=== PATIENT | female | born 1945 ===

== ENCOUNTER 2024-12-10 23:46 | Inpatient (IN) | payer MEDICARE, SELFPAY ==
--- NOTE | ~2024-12-10 | XR_ITS ---
EXAMINATION: XR CHEST CLINICAL INFORMATION: ?CHF COMPARISON: None available. TECHNIQUE: 2 views of the chest were obtained. FINDINGS: Trace right pleural effusion is evident. The heart size is mildly enlarged. Mild interstitial markings are noted in the middle third right lung zone. Lungs are clear otherwise. XR/XR chest 2V IMPRESSION: Trace right pleural effusion. Cardiomegaly. Increased interstitial markings in the mid third right lung zone could be chronic or related to an atypical or viral infection. Electronically signed by: Paco Randhawa MD 12/25/2024 01:48 PM EDT
[2024-12-11 00:13] VITALS: BMI 25.5
[2024-12-11 00:14] VITALS: BP 155/96; PULSE 71; TEMP 36; O2SAT 97
--- NOTE | 2024-12-11 04:52 | PC.NURSE ---
Admission Note Isaiah Burns , a 79-year-old woman, presented to [facility] ED via ambulance from her apartment for mental health evaluation on PCP recommendation for poor sleep, impulsive thought, and heightened energy due to her recent life stressors related to her financial, family, and housing issues. Her other concerns were irritated? skin issues and left index finger infection. The patient has a medical and psychiatric history of? Osteopenia, polymyalgia, HTN, Afib, heart murmur, TIA, CVA, right sided weakness, gait disturbance, atopic dermatitis, 75% bilateral hearing loses, Dementia, SILVIA, MDD, Brief psychotic disorder, and PTSD. Isaiah arrived in our unit in a stretcher at 0015 on 12/11/24, signed a CV in ED but refused by the ED provider and placed her on Section 12B with an admitting diagnosis of brief psychotic disorder. Isaiah is full-code. She is alert and oriented, times three to four. She is calm and pleasant but with an intermittent episode elated mood. Thought content logical/clear, thought process is tangential. Denied anxiety/depression/ SI/HI/AVH. Med reconciliation was completed/ approved by the provider. Skin assessment completed found pencil eraser size yellowish spot at the left lower back from her past biopsy, quarter size circular lesion near left jaw joint and smaller than dime size circular lesions near right jaw joint from bullous impetigo/Bactroban treatment in placed, light rash on upper abdominal region and left index finger Paronychia.? Walker offered due to history right sided weakness but she refused it by stating she can ambulate independently. Independent with ADL care. Continent with bowel and bladder. Labs unremarkable. Utox negative. UA negative. EKG abnormal shows sinus nehemias.? She signed her treatment plan, safety tool, belonging list, and release paper. Contraband searched and she is on for 5-minutes for a safety check.
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
[2024-12-11 08:22] LABS: Alanine Aminotransferase 19 U/L (0-31); Albumin Level 3.5 g/dL (3.5-5.0); Alkaline Phosphatase 67 U/L (39-117); Anion Gap 9 (12-20); Aspartate Amino Transferase 27 U/L (5-31); Blood Urea Nitrogen 9 mg/dL (9-16); Calcium 9.0 mg/dL (8.4-10.2); Carbon Dioxide 27 mmol/L (22-29); Chloride 109 mmol/L (96-108); Cholesterol 150 mg/dL (<200); Creatinine Clr Calc Pharmacy 84.4; Estimated Glomerular Filt Rate > 60; HDL Cholesterol 59 mg/dL (>40); Potassium 4.0 mmol/L (3.3-5.1); Sodium 141 mmol/L (135-145); Total Protein 6.2 g/dL (6.5-8.0); Triglycerides 48 mg/dL (<150)
[2024-12-11 08:41] LABS: Free T4 (Free Thyroxine) 0.98 ng/dL (0.71-1.85); Thyroid Stimulating Hormone 2.89 uIU/mL (0.32-4.0)
[2024-12-11 09:01] VITALS: BP 148/70; PULSE 69; RESP 18; TEMP 36.3; O2SAT 96
[2024-12-11] MEDS: Calcium + Vitamin D 250 MG TABLET 500 MG PO (09:03)
[2024-12-11] MEDS: Metoprolol Succinate ER 50 MG TAB.ER.24H PO (09:03)
[2024-12-11] MEDS: Clotrimazole 1 % Cream 15 GM TUBE 1 APPL TOPICAL ×2 (09:04→21:14)
[2024-12-11] MEDS: Dry Mouth Spray 60 ML SPRAY 1 SPRAY MUCOUS MEM ×2 (15:05→21:14)
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
[2024-12-11 16:52] VITALS: BMI 25.7
[2024-12-11 20:58] VITALS: BP 140/78; PULSE 72; RESP 16; TEMP 35.9; O2SAT 100
[2024-12-12] MEDS: Dry Mouth Spray 60 ML SPRAY 1 SPRAY MUCOUS MEM (07:07)
[2024-12-12 07:57] VITALS: BP 160/75; PULSE 73; RESP 18; TEMP 36.6; O2SAT 100
[2024-12-12] MEDS: Metoprolol Succinate ER 50 MG TAB.ER.24H PO (09:14)
[2024-12-12] MEDS: Calcium + Vitamin D 250 MG TABLET 500 MG PO (09:14)
[2024-12-12] MEDS: Clotrimazole 1 % Cream 15 GM TUBE 1 APPL TOPICAL ×2 (09:16→20:57)
--- NOTE | 2024-12-12 09:38 | P.PNPSI_ITS ---
Subjective Subjective Date of Service: 12/12/24 Reason For Visit: Brief psychotic d/o. SILVIA, PTSD Subjective Notes: Conditional Voluntary Interim History: Pt slept through the night. She is focused on dry mouth- which is ongoing issue for her, given dry mouth spray. she reports she chews gum to help with this. She presents slightly less labile, and less impulsive. She is taking risperidone. Spoke with daughter Sara to give update. No SI/HI. No psychosis nor overt delusional content. Mental Status Exam Mental Status Exam Narrative: Appearance: wearing hospital gown, somewhat disheveled, fair hygiene, in NAD Behavior: friendly Psychomotor: increased psychomotor activation, not agitated but moving, grabbing things, impulsively. Speech: mumbles at times, hyperverbal, normal-loud tone, spontaneous TP: flight of ideas TC: jummps from topics of her skin condition, to her work, to not knowing if she should be here or not Mood: good Affect: labile Si: denies HI: none VH/AH: none Delusions: no overt delusional content Insight/judgment: impaired x 2. memory/cog: alert, oriented to place, month, year not so much as to situation. Diagnostics Vital Signs (24Hr): Vital Signs - 24 hr 12/11/24 20:58 12/12/24 07:57 Temperature 96.7 F L 97.9 F Pulse Rate 72 73 Respiratory Rate 16 18 Blood Pressure 140/78 H 160/75 H Pulse Oximetry 100 100 Oxygen Delivery Method Room Air Room Air BMI result Body Mass Index 25.7 Labs 12/11/24 07:18 Labs: Laboratory Results - last 48 hr 12/11/24 07:18 Sodium 141 Potassium 4.0 Chloride 109 H Carbon Dioxide 27 Anion Gap 9 L BUN 9 Creatinine 0.53 Estim Creat Clear Calc 84.4 Estimated GFR > 60 Random Glucose 86 Estimat Average Glucose 123 Hemoglobin A1c % 5.9 Calcium 9.0 Total Bilirubin 0.4 AST 27 ALT 19 Alkaline Phosphatase 67 Total Protein 6.2 L Albumin 3.5 Triglycerides 48 Cholesterol 150 LDL Cholesterol, Calc 82 HDL Cholesterol 59 TSH 2.89 Free T4 0.98 Medications Medications Current Medications Acetaminophen (Acetaminophen 325 Mg Tablet) 650 mg PO Q6H PRN PRN Reason: Headache/Pain, Scale 1-10 Al Hydroxide/Mg Hydroxide (Magnesium Hydrox/Alum Hydrox 30 Ml Oral.Susp) 30 ml PO Q6H PRN PRN Reason: Heartburn/Nausea Apixaban (Apixaban 5 Mg Tablet) 5 mg PO BID [facility] Last Admin: 12/12/24 09:14 Dose: 5 mg Ascorbic Acid (Ascorbic Acid 500 Mg Tablet) 500 mg PO DAILY [facility] Last Admin: 12/12/24 09:14 Dose: 500 mg Calcium Carbonate/Cholecalciferol (Calcium + Vitamin D 250 Mg Tablet) 500 mg PO DAILY [facility] Last Admin: 12/12/24 09:14 Dose: 500 mg Cephalexin HCl (Cephalexin 500 Mg Capsule) 500 mg PO QID [facility] Last Admin: 12/12/24 09:15 Dose: 500 mg Clotrimazole (Clotrimazole 1 % Cream 15 Gm Tube) 1 appl TOPICAL BID [facility] Last Admin: 12/12/24 09:16 Dose: 1 appl Hydroxyzine HCl (Hydroxyzine Hcl 25 Mg Tablet) 25 mg PO Q6H PRN PRN Reason: mild anxiety Magnesium Hydroxide (Milk Of Magnesia 30 Ml Oral.Susp) 30 ml PO DAILY PRN PRN Reason: Constipation Metoprolol Succinate (Metoprolol Succinate Er 50 Mg Tab.Er.24h) 50 mg PO DAILY [facility]; Protocol Last Admin: 12/12/24 09:14 Dose: 50 mg Mupirocin (Mupirocin 2 % Oint 22 Gm Tube) 1 appl TOPICAL TID [facility]; Protocol Last Admin: 12/12/24 09:15 Dose: 1 appl Nicotine (Nicotine 21 Mg Patch.Td24) 21 mg TRANSDERMA DAILY PRN PRN Reason: nicotine craving Nicotine Polacrilex (Nicotine Polacrilex 2 Mg Gum) 2 mg BUCCAL Q2H PRN PRN Reason: Nicotine Cravings Olanzapine (Olanzapine 5 Mg Tablet) 5 mg PO BID PRN PRN Reason: agitation Risperidone (Risperidone 0.5 Mg Tablet) 0.5 mg PO BID [facility] Last Admin: 12/12/24 09:18 Dose: 0.5 mg Saliva Substitute (Dry Mouth [place] 60 Ml [place]) 1 spray MUCOUS MEM Q2H PRN PRN Reason: Dry Mouth Last Admin: 12/12/24 07:07 Dose: 1 spray Sertraline HCl (Sertraline Hcl 50 Mg Tablet) 50 mg PO DAILY [facility] Last Admin: 12/12/24 09:15 Dose: 50 mg Trazodone HCl (Trazodone Hcl 50 Mg Tablet) 50 mg PO BEDTIME MRX1 PRN PRN Reason: Insomnia Allergies Allergies Allergy/AdvReac Type Severity Reaction Status Date / Time Penicillins (PCN) Allergy Intermediate unkknown Verified 12/10/24 23:04 Sulfa (Sulfonamide Allergy Intermediate Unknown Verified 12/10/24 23:04 Antibiotics) dust Allergy Intermediate Unknown Uncoded 12/10/24 23:04 indometh Allergy Intermediate muscle Uncoded 12/10/24 23:04 spasm Assessment & Plan Assessment & Plan (1) Bullous impetigo: Status: Acute Code(s): L01.03 - Bullous impetigo Plan Mrs. Burns is an 79 year-old woman who was brought to [facility] on sect 12a after PCP called for wellness check and reporting concern in terms of anxiety. She also had two medical concerns including paronychia of finger in left hand and bullous impetigo.On the unit, Pt presents with labile mood, no SI/HI. No psychosis or delusions. Collateral information from daughter seems that these symptoms are not new, however, she has had limited psychiatric treatment during her life and used to be more functional. We discussed risks, benefits and alternative treatment options. Will start risperidone for mood stabilization. MEDICAL plan: Dementia/psychotic disorder/SILVIA/MDD/PTSD Treatment per psychiatric team AFib/history of CVA with a gait disturbance/history of TIAs Continue on Eliquis, rate controlled with metoprolol Hypertension Controlled on metoprolol Polymyalgia rheumatica Tylenol as needed No acute flare at this time Atopic dermatitis/bullous impetigo/paronychia Continue with Keflex and Bactroban Warm soaks to finger followed by bacitracin TID Continue with Atarax as needed for itching, this seems to be a source of patient's distress Contact precautions until 24 hours on treatment. Wound nurse consult Dry mouth and periodontal disease Artificial saliva q.2 hours p.r.n. History of hypothyroidism Not on medications TSH within normal limits, free T4 within normal limits PSYCHIATRIC: 12/12 continue risperidone 0.5mg po BID. Reason for continued inpatient stay Substantial Risk for: inability to function Time Spent With Patient Time: Total time managing care of this patient today ____ minutes.
--- NOTE | 2024-12-12 10:22 | HO.WOUND ---
Wound Consult: Initial 79 yr old female admitted to [facility] [place] 12[place]10[place]24- See progress notes and H&P for detailed history. Wound consult placed for face. Patient agreeable to assessment and photo documentation. Per notes, patient diagnosed and being treated for bullous impetigo with keflex and bactroban, recommending completing treatment. Left cheek Right cheek Etiology: bullous impetigo Measurements: left 2cm x 2cm x 0.1cm, right 0.8x0.8x0.1 Wound Bed: moist red/pink Drainage / Odor: scant serosanguineous no odor Edges: ? open Sharmaine wound: ? No Induration, Fluctuance or Warmth noted Pain: none Goals of Treatment: ? complete systemic and topical treatment for bullous impetigo back Etiology: dry scab - patient reports biopsy site Measurements: 0.5cm x 0.5cm x 0cm Wound Bed: dry scab Drainage / Odor: none Sharmaine wound: ? No Induration, Fluctuance or Warmth noted, mild localized redness - skin with irregular areas of hypopigmentation noted to back and arms Pain: none Goals of Treatment: ? open to air Groin/inner thighs Etiology: Fungal Wound Bed: intact red with satellite lesions Drainage / Odor: none Edges: ? diffuse Sharmaine wound: ? No Induration, Fluctuance or Warmth noted Pain: none Goals of Treatment: ? antifungal per provider order left second finger Etiology: paronychia Wound Bed: intact, pink mild swelling - patient reports improved Drainage / Odor: none Sharmaine wound: ? No Induration, Fluctuance or Warmth noted Pain: none Goals of Treatment: ? continue current treatment - open to air Recommendations: Bilateral cheeks: cleanse with saline, apply bactroban per MAR, cover with dry dressing/bandaid Back: scab, routine hygiene and moisturizer, leave open to air Groin: routine hygiene, antifungal cream per MAR Re-consult wound care Nurse for wound deterioration or wound changes.
[2024-12-12 20:00] VITALS: BP 147/66; PULSE 67; RESP 16; TEMP 36.7; O2SAT 100
[2024-12-13 08:00] VITALS: BP 135/64; PULSE 67; RESP 16; TEMP 36.2; O2SAT 98
[2024-12-13] MEDS: Dry Mouth Spray 60 ML SPRAY 1 SPRAY MUCOUS MEM (08:39)
[2024-12-13] MEDS: Clotrimazole 1 % Cream 15 GM TUBE 1 APPL TOPICAL ×2 (09:11→21:22)
[2024-12-13] MEDS: Calcium + Vitamin D 250 MG TABLET 500 MG PO (09:11)
[2024-12-13 09:22] VITALS: BP 119/59; PULSE 78
[2024-12-13] MEDS: Metoprolol Succinate ER 50 MG TAB.ER.24H PO (09:24)
--- NOTE | 2024-12-13 10:21 | P.PNPSI_ITS ---
Subjective Subjective Date of Service: 12/13/24 Reason For Visit: Brief psychotic d/o. SILVIA, PTSD Interim History: Met with patient; discussed with team; reviewed note Nurse reports worsening bulbous impetigo which is spreading from groin up to pelvis/abdomen. Patient was started on Keflex and Bactroban however since nursing reports that is worsening, placed hospitalist consult Diagnostics Vital Signs (24Hr): Vital Signs - 24 hr 12/12/24 20:00 12/13/24 08:00 12/13/24 09:22 Temperature 98.1 F 97.2 F Pulse Rate 67 67 78 Respiratory Rate 16 16 Blood Pressure 147/66 H 135/64 119/59 L Pulse Oximetry 100 98 Oxygen Delivery Method Room Air Room Air BMI result Body Mass Index 25.7 Labs 12/11/24 07:18 Medications Medications Current Medications Acetaminophen (Acetaminophen 325 Mg Tablet) 650 mg PO Q6H PRN PRN Reason: Headache/Pain, Scale 1-10 Al Hydroxide/Mg Hydroxide (Magnesium Hydrox/Alum Hydrox 30 Ml Oral.Susp) 30 ml PO Q6H PRN PRN Reason: Heartburn/Nausea Apixaban (Apixaban 5 Mg Tablet) 5 mg PO BID [facility] Last Admin: 12/13/24 09:12 Dose: 5 mg Ascorbic Acid (Ascorbic Acid 500 Mg Tablet) 500 mg PO DAILY [facility] Last Admin: 12/13/24 09:13 Dose: 500 mg Calcium Carbonate/Cholecalciferol (Calcium + Vitamin D 250 Mg Tablet) 500 mg PO DAILY [facility] Last Admin: 12/13/24 09:11 Dose: 500 mg Cephalexin HCl (Cephalexin 500 Mg Capsule) 500 mg PO QID [facility] Last Admin: 12/13/24 09:12 Dose: 500 mg Clotrimazole (Clotrimazole 1 % Cream 15 Gm Tube) 1 appl TOPICAL BID [facility] Last Admin: 12/13/24 09:11 Dose: 1 appl Hydroxyzine HCl (Hydroxyzine Hcl 25 Mg Tablet) 25 mg PO Q6H PRN PRN Reason: mild anxiety Magnesium Hydroxide (Milk Of Magnesia 30 Ml Oral.Susp) 30 ml PO DAILY PRN PRN Reason: Constipation Metoprolol Succinate (Metoprolol Succinate Er 50 Mg Tab.Er.24h) 50 mg PO DAILY [facility]; Protocol Last Admin: 12/13/24 09:24 Dose: 50 mg Mupirocin (Mupirocin 2 % Oint 22 Gm Tube) 1 appl TOPICAL TID [facility]; Protocol Last Admin: 12/13/24 09:10 Dose: 1 appl Nicotine (Nicotine 21 Mg Patch.Td24) 21 mg TRANSDERMA DAILY PRN PRN Reason: nicotine craving Nicotine Polacrilex (Nicotine Polacrilex 2 Mg Gum) 2 mg BUCCAL Q2H PRN PRN Reason: Nicotine Cravings Olanzapine (Olanzapine 5 Mg Tablet) 5 mg PO BID PRN PRN Reason: agitation Risperidone (Risperidone 0.5 Mg Tablet) 0.5 mg PO BID [facility] Last Admin: 12/13/24 09:12 Dose: 0.5 mg Saliva Substitute (Dry Mouth [place] 60 Ml [place]) 1 spray MUCOUS MEM Q2H PRN PRN Reason: Dry Mouth Last Admin: 12/13/24 08:39 Dose: 1 spray Sertraline HCl (Sertraline Hcl 50 Mg Tablet) 50 mg PO DAILY [facility] Last Admin: 12/13/24 09:12 Dose: 50 mg Trazodone HCl (Trazodone Hcl 50 Mg Tablet) 50 mg PO BEDTIME MRX1 PRN PRN Reason: Insomnia Allergies Allergies Allergy/AdvReac Type Severity Reaction Status Date / Time Penicillins (PCN) Allergy Intermediate unkknown Verified 12/10/24 23:04 Sulfa (Sulfonamide Allergy Intermediate Unknown Verified 12/10/24 23:04 Antibiotics) dust Allergy Intermediate Unknown Uncoded 12/10/24 23:04 indometh Allergy Intermediate muscle Uncoded 12/10/24 23:04 spasm Assessment & Plan Assessment & Plan (1) Bullous impetigo: Status: Acute Code(s): L01.03 - Bullous impetigo Plan 79-year-old female admitted to [facility] after presenting to [facility] for increased impulsive thoughts and shon. Dementia/psychotic disorder/SILVIA/MDD/PTSD Treatment per psychiatric team AFib/history of CVA with a gait disturbance/history of TIAs Continue on Eliquis, rate controlled with metoprolol Hypertension Controlled on metoprolol Polymyalgia rheumatica Tylenol as needed No acute flare at this time Atopic dermatitis/bullous impetigo/paronychia Continue with Keflex and Bactroban Warm soaks to finger followed by bacitracin TID Continue with Atarax as needed for itching, this seems to be a source of patient's distress Contact precautions until 24 hours on treatment. Wound nurse consult Dry mouth and periodontal disease Artificial saliva q.2 hours p.r.n. History of hypothyroidism Not on medications TSH within normal limits, free T4 within normal limits Thank you for allowing me to participate in the care of this patient. Will follow as needed, please notify medical provider with any changes in condition or concerns. Time Spent With Patient Time: Total time managing care of this patient today ____ minutes.
--- NOTE | 2024-12-13 10:30 | PC.NURSE ---
Pt has worsening rash to bilateral groin. site cleansed with soap and water and scheduled Triamcinolone cream applied to bilat groin. Pt has a slightly raised, red clustered rash that is on her bilat thigh and bilat hips and slightly spreading up her abdomen. Provider Sanjeev Caldwell notified of the spreading rash, hospitalist consult placed. Pt bilat cheeks cleansed with NS, scheduled bactroban and bandaids applied. Pt scab on back was cleansed with soap and water and lotion applied.
--- NOTE | 2024-12-13 12:44 | P.PNPSI_ITS ---
Subjective Subjective Date of Service: 12/13/24 Reason For Visit: Brief psychotic d/o. SILVIA, PTSD Interim History: Patient was seen and discussed in rounds today. Records and plans were reviewed. She continues to be anxious and concerned about possible eviction. Skin lesions are being cleaned and she is on antibiotics. No other complaints or changes today. Eating and sleeping adequately Review of Systems Review of Systems Yes all other systems are reviewed and are negative Mental Status Exam Mental Status Exam Narrative: Appearance: wearing hospital gown, somewhat disheveled, fair hygiene, in NAD Behavior: friendly Psychomotor: increased psychomotor activation, not agitated but moving, grabbing things, impulsively. Speech: mumbles at times, hyperverbal, normal-loud tone, spontaneous TP: flight of ideas TC: jummps from topics of her skin condition, to her work, to not knowing if she should be here or not Mood: good Affect: labile Si: denies HI: none VH/AH: none Delusions: no overt delusional content Insight/judgment: impaired x 2. memory/cog: alert, oriented to place, month, year not so much as to situation. Diagnostics Vital Signs (24Hr): Vital Signs - 24 hr 12/12/24 20:00 12/13/24 08:00 12/13/24 09:22 Temperature 98.1 F 97.2 F Pulse Rate 67 67 78 Respiratory Rate 16 16 Blood Pressure 147/66 H 135/64 119/59 L Pulse Oximetry 100 98 Oxygen Delivery Method Room Air Room Air BMI result Body Mass Index 25.7 Labs 12/11/24 07:18 Medications Medications Current Medications Acetaminophen (Acetaminophen 325 Mg Tablet) 650 mg PO Q6H PRN PRN Reason: Headache/Pain, Scale 1-10 Al Hydroxide/Mg Hydroxide (Magnesium Hydrox/Alum Hydrox 30 Ml Oral.Susp) 30 ml PO Q6H PRN PRN Reason: Heartburn/Nausea Apixaban (Apixaban 5 Mg Tablet) 5 mg PO BID [facility] Last Admin: 12/13/24 09:12 Dose: 5 mg Ascorbic Acid (Ascorbic Acid 500 Mg Tablet) 500 mg PO DAILY [facility] Last Admin: 12/13/24 09:13 Dose: 500 mg Calcium Carbonate/Cholecalciferol (Calcium + Vitamin D 250 Mg Tablet) 500 mg PO DAILY [facility] Last Admin: 12/13/24 09:11 Dose: 500 mg Cephalexin HCl (Cephalexin 500 Mg Capsule) 500 mg PO QID [facility] Last Admin: 12/13/24 12:29 Dose: 500 mg Clotrimazole (Clotrimazole 1 % Cream 15 Gm Tube) 1 appl TOPICAL BID [facility] Last Admin: 12/13/24 09:11 Dose: 1 appl Hydroxyzine HCl (Hydroxyzine Hcl 25 Mg Tablet) 25 mg PO Q6H PRN PRN Reason: mild anxiety Magnesium Hydroxide (Milk Of Magnesia 30 Ml Oral.Susp) 30 ml PO DAILY PRN PRN Reason: Constipation Metoprolol Succinate (Metoprolol Succinate Er 50 Mg Tab.Er.24h) 50 mg PO DAILY [facility]; Protocol Last Admin: 12/13/24 09:24 Dose: 50 mg Mupirocin (Mupirocin 2 % Oint 22 Gm Tube) 1 appl TOPICAL TID [facility]; Protocol Last Admin: 12/13/24 09:10 Dose: 1 appl Nicotine (Nicotine 21 Mg Patch.Td24) 21 mg TRANSDERMA DAILY PRN PRN Reason: nicotine craving Nicotine Polacrilex (Nicotine Polacrilex 2 Mg Gum) 2 mg BUCCAL Q2H PRN PRN Reason: Nicotine Cravings Olanzapine (Olanzapine 5 Mg Tablet) 5 mg PO BID PRN PRN Reason: agitation Risperidone (Risperidone 0.5 Mg Tablet) 0.5 mg PO BID [facility] Last Admin: 12/13/24 09:12 Dose: 0.5 mg Saliva Substitute (Dry Mouth [place] 60 Ml [place]) 1 spray MUCOUS MEM Q2H PRN PRN Reason: Dry Mouth Last Admin: 12/13/24 08:39 Dose: 1 spray Sertraline HCl (Sertraline Hcl 50 Mg Tablet) 50 mg PO DAILY [facility] Last Admin: 12/13/24 09:12 Dose: 50 mg Trazodone HCl (Trazodone Hcl 50 Mg Tablet) 50 mg PO BEDTIME MRX1 PRN PRN Reason: Insomnia Allergies Allergies Allergy/AdvReac Type Severity Reaction Status Date / Time Penicillins (PCN) Allergy Intermediate unkknown Verified 12/10/24 23:04 Sulfa (Sulfonamide Allergy Intermediate Unknown Verified 12/10/24 23:04 Antibiotics) dust Allergy Intermediate Unknown Uncoded 12/10/24 23:04 indometh Allergy Intermediate muscle Uncoded 12/10/24 23:04 spasm Assessment & Plan Assessment & Plan (1) Bullous impetigo: Status: Acute Code(s): L01.03 - Bullous impetigo Plan Mrs. Burns is an 79 year-old woman who was brought to [facility] on sect 12a after PCP called for wellness check and reporting concern in terms of anxiety. She also had two medical concerns including paronychia of finger in left hand and bullous impetigo.On the unit, Pt presents with labile mood, no SI/HI. No psychosis or delusions. Collateral information from daughter seems that these symptoms are not new, however, she has had limited psychiatric treatment during her life and used to be more functional. We discussed risks, benefits and alternative treatment options. Will start risperidone for mood stabilization. MEDICAL plan: Dementia/psychotic disorder/SILVIA/MDD/PTSD Treatment per psychiatric team AFib/history of CVA with a gait disturbance/history of TIAs Continue on Eliquis, rate controlled with metoprolol Hypertension Controlled on metoprolol Polymyalgia rheumatica Tylenol as needed No acute flare at this time Atopic dermatitis/bullous impetigo/paronychia Continue with Keflex and Bactroban Warm soaks to finger followed by bacitracin TID Continue with Atarax as needed for itching, this seems to be a source of patient's distress Contact precautions until 24 hours on treatment. Wound nurse consult Dry mouth and periodontal disease Artificial saliva q.2 hours p.r.n. History of hypothyroidism Not on medications TSH within normal limits, free T4 within normal limits PSYCHIATRIC: 12/12 continue risperidone 0.5mg po BID. 12/13: Continue current regimen and plans Reason for continued inpatient stay Substantial Risk for: inability to function Time Spent With Patient Time: Total time managing care of this patient today ____ minutes.
--- NOTE | 2024-12-13 16:11 | PC.NURSE ---
Pt informed RN that she lost her wedding rings on the unit. RN looked with pt in her room and could not find her rings. RN called security who checked the safe and reported the rings were not in the safe. RN opened the sealed pt belongings behind the nurses station and did not find the rings. RN informed pt that the unit would continue searching for her wedding rings.
[2024-12-13 20:00] VITALS: BP 122/63; PULSE 66; RESP 16; TEMP 36.4; O2SAT 99
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
[2024-12-14 08:00] VITALS: BP 144/65; PULSE 70; RESP 16; TEMP 36.2; O2SAT 96
[2024-12-14 08:11] VITALS: BP 144/65; PULSE 70
[2024-12-14] MEDS: Calcium + Vitamin D 250 MG TABLET 500 MG PO (08:11)
[2024-12-14] MEDS: Metoprolol Succinate ER 50 MG TAB.ER.24H PO (08:11)
[2024-12-14 09:25] LABS: MRSA Nasal PCR NEGATIVE (Negative); SA Nasal PCR POSITIVE (Negative)
[2024-12-14] MEDS: Clotrimazole 1 % Cream 15 GM TUBE 1 APPL TOPICAL ×2 (09:52→19:50)
--- NOTE | 2024-12-14 10:08 | PC.NURSE ---
Affected areas cleansed and antifungal applied. Patient continues to c/o itching. Atarax administered. Will continue to monitor.
--- NOTE | 2024-12-14 12:14 | HO.PSYCHPN ---
Subjective Subjective Date of Service: 12/14/24 Reason For Visit: Brief psychotic d/o. SILVIA, PTSD Interim History: Patient was seen and discussed in rounds today. Records and plans were reviewed. She has been stable with no changes. No behavioral issues. Finger wound is being cleaned. She is on antibiotics. No dangerous behaviors. No behavioral issues. No changes were made Review of Systems Review of Systems Yes all other systems are reviewed and are negative Mental Status Exam Mental Status Exam Narrative: Appearance: wearing hospital gown, somewhat disheveled, fair hygiene, in NAD Behavior: friendly Psychomotor: increased psychomotor activation, not agitated but moving, grabbing things, impulsively. Speech: mumbles at times, hyperverbal, normal-loud tone, spontaneous TP: flight of ideas TC: jummps from topics of her skin condition, to her work, to not knowing if she should be here or not Mood: good Affect: labile Si: denies HI: none VH/AH: none Delusions: no overt delusional content Insight/judgment: impaired x 2. memory/cog: alert, oriented to place, month, year not so much as to situation. Diagnostics Vital Signs (24Hr): Vital Signs - 24 hr 12/13/24 20:00 12/14/24 08:00 12/14/24 08:11 Temperature 97.5 F 97.2 F Pulse Rate 66 70 70 Respiratory Rate 16 16 Blood Pressure 122/63 144/65 H 144/65 H Pulse Oximetry 99 96 Oxygen Delivery Method Room Air Room Air BMI result Body Mass Index 25.7 Labs 12/11/24 07:18 Labs: Laboratory Results - last 48 hr 12/13/24 22:35 Nasal Screen MRSA (PCR) NEGATIVE Nasal S. aureus Screen POSITIVE A Nasal MRSA/S.aureus Interp SEE NOTE Medications Medications Current Medications Acetaminophen (Acetaminophen 325 Mg Tablet) 650 mg PO Q6H PRN PRN Reason: Headache/Pain, Scale 1-10 Al Hydroxide/Mg Hydroxide (Magnesium Hydrox/Alum Hydrox 30 Ml Oral.Susp) 30 ml PO Q6H PRN PRN Reason: Heartburn/Nausea Apixaban (Apixaban 5 Mg Tablet) 5 mg PO BID [facility] Last Admin: 12/14/24 08:11 Dose: 5 mg Ascorbic Acid (Ascorbic Acid 500 Mg Tablet) 500 mg PO DAILY [facility] Last Admin: 12/14/24 08:11 Dose: 500 mg Calcium Carbonate/Cholecalciferol (Calcium + Vitamin D 250 Mg Tablet) 500 mg PO DAILY [facility] Last Admin: 12/14/24 08:11 Dose: 500 mg Cephalexin HCl (Cephalexin 500 Mg Capsule) 500 mg PO QID [facility] Last Admin: 12/14/24 08:12 Dose: 500 mg Clotrimazole (Clotrimazole 1 % Cream 15 Gm Tube) 1 appl TOPICAL BID [facility] Last Admin: 12/14/24 09:52 Dose: 1 appl Hydroxyzine HCl (Hydroxyzine Hcl 25 Mg Tablet) 25 mg PO Q6H PRN PRN Reason: mild anxiety Last Admin: 12/14/24 10:24 Dose: 25 mg Magnesium Hydroxide (Milk Of Magnesia 30 Ml Oral.Susp) 30 ml PO DAILY PRN PRN Reason: Constipation Metoprolol Succinate (Metoprolol Succinate Er 50 Mg Tab.Er.24h) 50 mg PO DAILY [facility]; Protocol Last Admin: 12/14/24 08:11 Dose: 50 mg Mupirocin (Mupirocin 2 % Oint 22 Gm Tube) 1 appl TOPICAL TID [facility]; Protocol Last Admin: 12/14/24 09:52 Dose: 1 appl Nicotine (Nicotine 21 Mg Patch.Td24) 21 mg TRANSDERMA DAILY PRN PRN Reason: nicotine craving Nicotine Polacrilex (Nicotine Polacrilex 2 Mg Gum) 2 mg BUCCAL Q2H PRN PRN Reason: Nicotine Cravings Olanzapine (Olanzapine 5 Mg Tablet) 5 mg PO BID PRN PRN Reason: agitation Last Admin: 12/14/24 08:11 Dose: 5 mg Risperidone (Risperidone 0.5 Mg Tablet) 0.5 mg PO BID [facility] Last Admin: 12/14/24 08:12 Dose: 0.5 mg Saliva Substitute (Dry Mouth [place] 60 Ml [place]) 1 spray MUCOUS MEM Q2H PRN PRN Reason: Dry Mouth Last Admin: 12/13/24 08:39 Dose: 1 spray Sertraline HCl (Sertraline Hcl 50 Mg Tablet) 50 mg PO DAILY [facility] Last Admin: 12/14/24 08:11 Dose: 50 mg Trazodone HCl (Trazodone Hcl 50 Mg Tablet) 50 mg PO BEDTIME MRX1 PRN PRN Reason: Insomnia Allergies Allergies Allergy/AdvReac Type Severity Reaction Status Date / Time Penicillins (PCN) Allergy Intermediate unkknown Verified 12/10/24 23:04 Sulfa (Sulfonamide Allergy Intermediate Unknown Verified 12/10/24 23:04 Antibiotics) dust Allergy Intermediate Unknown Uncoded 12/10/24 23:04 indometh Allergy Intermediate muscle Uncoded 12/10/24 23:04 spasm Assessment & Plan Assessment & Plan (1) Bullous impetigo: Status: Acute Code(s): L01.03 - Bullous impetigo (2) Davida: Status: Acute Code(s): F30.9 - Manic episode, unspecified Plan Pt on S1 itz psych re-consulted for worsening rash bullous impetigo - appears to be improving however pt disagrees, continue with keflex and bactroban - MRSA nasal swab, if + switch to doxycycline 100mg BID x7 days - atarax PRN for itching - follow wound care recs paronychia, improving - warm soaks and bacitracin TID tinea cruris - continue clotrimazole cream BID - keep skin clean and dry Thank you for allowing me to participate in the pt's care. Signing off. Please contact the medical team if any questions or concerns. 12/14: Continue current regimen and plans Reason for continued inpatient stay Substantial Risk for: med/psych decompensation Time Spent With Patient Time: Total time managing care of this patient today ____ minutes.
--- NOTE | 2024-12-14 17:02 | PC.NURSE ---
Warm compress applied to L second finger as ordered. Bacitracin applied. Patient educated r/t putting finger in her mouth.
[2024-12-14 19:47] VITALS: BP 119/57; PULSE 75; RESP 16; TEMP 36.3; O2SAT 98
--- NOTE | 2024-12-15 06:18 | PC.NURSE ---
Patient slept through the night, meds and meals compliant, no distress observed/reported, no behavior and safety concerns, will continue to monitor
[2024-12-15 08:00] VITALS: BP 120/60; PULSE 78; TEMP 36.3
[2024-12-15] MEDS: Calcium + Vitamin D 250 MG TABLET 500 MG PO (09:49)
[2024-12-15] MEDS: Metoprolol Succinate ER 50 MG TAB.ER.24H PO (09:51)
--- NOTE | 2024-12-15 10:05 | P.PNPSI_ITS ---
Subjective Subjective Date of Service: 12/15/24 Reason For Visit: Brief psychotic d/o. SILVIA, PTSD Interim History: Patient was seen and discussed in rounds today. Records and plans were reviewed. She has been stable with no changes. No behavioral issues. She had a panic attack this morning, waking up history did not have her dentures and felt like she could not breathe. She is doing better now and eating her breakfast. No complaints. No side effects. No changes were made today Review of Systems Review of Systems Yes all other systems are reviewed and are negative Mental Status Exam Mental Status Exam Narrative: In today's visit she is alert, pleasant and interactive within her means. Soft- spoken speech. Little eye contact. No acute signs of psychosis. Cognitively impaired. No SI. Judgment impaired Diagnostics Vital Signs (24Hr): Vital Signs - 24 hr 12/14/24 19:47 Temperature 97.3 F Pulse Rate 75 Respiratory Rate 16 Blood Pressure 119/57 L Pulse Oximetry 98 Oxygen Delivery Method Room Air BMI result Body Mass Index 25.7 Labs 12/11/24 07:18 Labs: Laboratory Results - last 48 hr 12/13/24 22:35 Nasal Screen MRSA (PCR) NEGATIVE Nasal S. aureus Screen POSITIVE A Nasal MRSA/S.aureus Interp SEE NOTE Medications Medications Current Medications Acetaminophen (Acetaminophen 325 Mg Tablet) 650 mg PO Q6H PRN PRN Reason: Headache/Pain, Scale 1-10 Al Hydroxide/Mg Hydroxide (Magnesium Hydrox/Alum Hydrox 30 Ml Oral.Susp) 30 ml PO Q6H PRN PRN Reason: Heartburn/Nausea Apixaban (Apixaban 5 Mg Tablet) 5 mg PO BID [facility] Last Admin: 12/15/24 09:52 Dose: 5 mg Ascorbic Acid (Ascorbic Acid 500 Mg Tablet) 500 mg PO DAILY [facility] Last Admin: 12/15/24 09:50 Dose: 500 mg Calcium Carbonate/Cholecalciferol (Calcium + Vitamin D 250 Mg Tablet) 500 mg PO DAILY [facility] Last Admin: 12/15/24 09:49 Dose: 500 mg Cephalexin HCl (Cephalexin 500 Mg Capsule) 500 mg PO QID [facility] Last Admin: 12/15/24 09:51 Dose: 500 mg Clotrimazole (Clotrimazole 1 % Cream 15 Gm Tube) 1 appl TOPICAL BID [facility] Last Admin: 12/14/24 19:50 Dose: 1 appl Hydroxyzine HCl (Hydroxyzine Hcl 25 Mg Tablet) 25 mg PO Q6H PRN PRN Reason: mild anxiety Last Admin: 12/14/24 10:24 Dose: 25 mg Magnesium Hydroxide (Milk Of Magnesia 30 Ml Oral.Susp) 30 ml PO DAILY PRN PRN Reason: Constipation Metoprolol Succinate (Metoprolol Succinate Er 50 Mg Tab.Er.24h) 50 mg PO DAILY [facility]; Protocol Last Admin: 12/15/24 09:51 Dose: 50 mg Mupirocin (Mupirocin 2 % Oint 22 Gm Tube) 1 appl TOPICAL TID [facility]; Protocol Last Admin: 12/14/24 19:50 Dose: 1 appl Nicotine (Nicotine 21 Mg Patch.Td24) 21 mg TRANSDERMA DAILY PRN PRN Reason: nicotine craving Nicotine Polacrilex (Nicotine Polacrilex 2 Mg Gum) 2 mg BUCCAL Q2H PRN PRN Reason: Nicotine Cravings Olanzapine (Olanzapine 5 Mg Tablet) 5 mg PO BID PRN PRN Reason: agitation Last Admin: 12/14/24 08:11 Dose: 5 mg Risperidone (Risperidone 0.5 Mg Tablet) 0.5 mg PO BID [facility] Last Admin: 12/15/24 09:49 Dose: 0.5 mg Saliva Substitute (Dry Mouth [place] 60 Ml [place]) 1 spray MUCOUS MEM Q2H PRN PRN Reason: Dry Mouth Last Admin: 12/13/24 08:39 Dose: 1 spray Sertraline HCl (Sertraline Hcl 50 Mg Tablet) 50 mg PO DAILY [facility] Last Admin: 12/15/24 09:49 Dose: 50 mg Trazodone HCl (Trazodone Hcl 50 Mg Tablet) 50 mg PO BEDTIME MRX1 PRN PRN Reason: Insomnia Allergies Allergies Allergy/AdvReac Type Severity Reaction Status Date / Time Penicillins (PCN) Allergy Intermediate unkknown Verified 12/10/24 23:04 Sulfa (Sulfonamide Allergy Intermediate Unknown Verified 12/10/24 23:04 Antibiotics) dust Allergy Intermediate Unknown Uncoded 12/10/24 23:04 indometh Allergy Intermediate muscle Uncoded 12/10/24 23:04 spasm Assessment & Plan Assessment & Plan (1) Bullous impetigo: Status: Acute Code(s): L01.03 - Bullous impetigo (2) Davida: Status: Acute Code(s): F30.9 - Manic episode, unspecified Plan Pt on S1 itz psych re-consulted for worsening rash bullous impetigo - appears to be improving however pt disagrees, continue with keflex and bactroban - MRSA nasal swab, if + switch to doxycycline 100mg BID x7 days - atarax PRN for itching - follow wound care recs paronychia, improving - warm soaks and bacitracin TID tinea cruris - continue clotrimazole cream BID - keep skin clean and dry Thank you for allowing me to participate in the pt's care. Signing off. Please contact the medical team if any questions or concerns. 12/14: Continue current regimen and plans 12/15: Continue current regimen and plans. Reason for continued inpatient stay Substantial Risk for: med/psych decompensation Time Spent With Patient Time: Total time managing care of this patient today ____ minutes.
[2024-12-15] MEDS: Clotrimazole 1 % Cream 15 GM TUBE 1 APPL TOPICAL (12:11)
[2024-12-15 20:00] VITALS: BP 109/55; PULSE 76; RESP 16; TEMP 36.9; O2SAT 95
[2024-12-15] MEDS: Betamethasone Dip Aug 0.05% Cr 15 GM TUBE 1 APPL TOPICAL (20:43)
[2024-12-16 08:00] VITALS: BP 125/64; PULSE 70; RESP 18; TEMP 36.7; O2SAT 99
--- NOTE | 2024-12-16 08:35 | P.PNPSI_ITS ---
Subjective Subjective Date of Service: 12/16/24 Reason For Visit: Brief psychotic d/o. SILVIA, PTSD Subjective Notes: Conditional Voluntary Interim History: sleeping better. less racing thoughts, less labile more organized. No SI/HI. She is taking risperidone. VS stable. hospitalist following re: rash. Review of Systems Review of Systems Denies any shortness of breath, chest pain, headaches, abdominal pain. Denies any itch. Yes all other systems are reviewed and are negative Constitutional: Denies chills and Denies fever(s) Cardiovascular: Denies chest pain and Denies dyspnea Respiratory: Denies dyspnea and Denies wheezing Skin/Breast: Reports as per HPI Allergic/Immunologic: Denies wheezing Mental Status Exam Mental Status Exam Narrative: Appearance: wearing hospital gown, somewhat disheveled, fair hygiene, in NAD Behavior: friendly Psychomotor: increased psychomotor activation, not agitated but moving, grabbing things, impulsively. Speech: mumbles at times, hyperverbal, normal-loud tone, spontaneous TP: flight of ideas TC: jummps from topics of her skin condition, to her work, to not knowing if she should be here or not Mood: good Affect: labile Si: denies HI: none VH/AH: none Delusions: no overt delusional content Insight/judgment: impaired x 2. memory/cog: alert, oriented to place, month, year not so much as to situation. Diagnostics Vital Signs (24Hr): Vital Signs - 24 hr 12/15/24 20:00 Temperature 98.4 F Pulse Rate 76 Respiratory Rate 16 Blood Pressure 109/55 L Pulse Oximetry 95 Oxygen Delivery Method Room Air BMI result Body Mass Index 25.7 Labs 12/11/24 07:18 Labs: Laboratory Results - last 48 hr 12/13/24 22:35 Nasal Screen MRSA (PCR) NEGATIVE Nasal S. aureus Screen POSITIVE A Nasal MRSA/S.aureus Interp SEE NOTE Medications Medications Current Medications Acetaminophen (Acetaminophen 325 Mg Tablet) 650 mg PO Q6H PRN PRN Reason: Headache/Pain, Scale 1-10 Al Hydroxide/Mg Hydroxide (Magnesium Hydrox/Alum Hydrox 30 Ml Oral.Susp) 30 ml PO Q6H PRN PRN Reason: Heartburn/Nausea Apixaban (Apixaban 5 Mg Tablet) 5 mg PO BID [facility] Last Admin: 12/15/24 20:37 Dose: 5 mg Ascorbic Acid (Ascorbic Acid 500 Mg Tablet) 500 mg PO DAILY [facility] Last Admin: 12/15/24 09:50 Dose: 500 mg Betamethasone Dipropion Augmented (Betamethasone Dip Aug 0.05% Cr 15 Gm Tube) 1 appl TOPICAL BID [facility]; Protocol Stop: 12/25/24 09:01 Last Admin: 12/15/24 20:43 Dose: 1 appl Calcium Carbonate/Cholecalciferol (Calcium + Vitamin D 250 Mg Tablet) 500 mg PO DAILY [facility] Last Admin: 12/15/24 09:49 Dose: 500 mg Cephalexin HCl (Cephalexin 500 Mg Capsule) 500 mg PO QID [facility] Last Admin: 12/15/24 20:37 Dose: 500 mg Hydroxyzine HCl (Hydroxyzine Hcl 25 Mg Tablet) 25 mg PO Q6H PRN PRN Reason: mild anxiety Last Admin: 12/14/24 10:24 Dose: 25 mg Magnesium Hydroxide (Milk Of Magnesia 30 Ml Oral.Susp) 30 ml PO DAILY PRN PRN Reason: Constipation Metoprolol Succinate (Metoprolol Succinate Er 50 Mg Tab.Er.24h) 50 mg PO DAILY [facility]; Protocol Last Admin: 12/15/24 09:51 Dose: 50 mg Mupirocin (Mupirocin 2 % Oint 22 Gm Tube) 1 appl TOPICAL TID [facility]; Protocol Last Admin: 12/15/24 20:43 Dose: 1 appl Nicotine (Nicotine 21 Mg Patch.Td24) 21 mg TRANSDERMA DAILY PRN PRN Reason: nicotine craving Nicotine Polacrilex (Nicotine Polacrilex 2 Mg Gum) 2 mg BUCCAL Q2H PRN PRN Reason: Nicotine Cravings Olanzapine (Olanzapine 5 Mg Tablet) 5 mg PO BID PRN PRN Reason: agitation Last Admin: 12/14/24 08:11 Dose: 5 mg Risperidone (Risperidone 0.5 Mg Tablet) 0.5 mg PO BID [facility] Last Admin: 12/15/24 20:37 Dose: 0.5 mg Saliva Substitute (Dry Mouth [place] 60 Ml [place]) 1 spray MUCOUS MEM Q2H PRN PRN Reason: Dry Mouth Last Admin: 12/13/24 08:39 Dose: 1 spray Sertraline HCl (Sertraline Hcl 50 Mg Tablet) 50 mg PO DAILY [facility] Last Admin: 12/15/24 09:49 Dose: 50 mg Trazodone HCl (Trazodone Hcl 50 Mg Tablet) 50 mg PO BEDTIME MRX1 PRN PRN Reason: Insomnia Allergies Allergies Allergy/AdvReac Type Severity Reaction Status Date / Time Penicillins (PCN) Allergy Intermediate unkknown Verified 12/10/24 23:04 Sulfa (Sulfonamide Allergy Intermediate Unknown Verified 12/10/24 23:04 Antibiotics) dust Allergy Intermediate Unknown Uncoded 12/10/24 23:04 indometh Allergy Intermediate muscle Uncoded 12/10/24 23:04 spasm Assessment & Plan Assessment & Plan (1) Davida: Status: Acute Code(s): F30.9 - Manic episode, unspecified (2) Bullous impetigo: Status: Acute Code(s): L01.03 - Bullous impetigo Plan Mrs. Burns is an 79 year-old woman who was brought to [facility] on sect 12a after PCP called for wellness check and reporting concern in terms of anxiety. She also had two medical concerns including paronychia of finger in left hand and bullous impetigo.On the unit, Pt presents with labile mood, no SI/HI. No psychosis or delusions. Collateral information from daughter seems that these symptoms are not new, however, she has had limited psychiatric treatment during her life and used to be more functional. We discussed risks, benefits and alternative treatment options. Will start risperidone for mood stabilization. MEDICAL plan: Dementia/psychotic disorder/SILVIA/MDD/PTSD Treatment per psychiatric team AFib/history of CVA with a gait disturbance/history of TIAs Continue on Eliquis, rate controlled with metoprolol Hypertension Controlled on metoprolol Polymyalgia rheumatica Tylenol as needed No acute flare at this time Atopic dermatitis/bullous impetigo/paronychia Continue with Keflex and Bactroban Warm soaks to finger followed by bacitracin TID Continue with Atarax as needed for itching, this seems to be a source of patient's distress Contact precautions until 24 hours on treatment. Wound nurse consult Dry mouth and periodontal disease Artificial saliva q.2 hours p.r.n. History of hypothyroidism Not on medications TSH within normal limits, free T4 within normal limits PSYCHIATRIC: 12/12 continue risperidone 0.5mg po BID. 12/16 continue tx. signed CV. Reason for continued inpatient stay Substantial Risk for: inability to function Time Spent With Patient Time: Total time managing care of this patient today ____ minutes.
[2024-12-16] MEDS: Calcium + Vitamin D 250 MG TABLET 500 MG PO (08:44)
[2024-12-16] MEDS: Metoprolol Succinate ER 50 MG TAB.ER.24H PO (08:44)
--- NOTE | 2024-12-16 11:00 | HO.PM.IMPN ---
Subjective Subjective Date of Service: 12/16/24 Interval History: Patient was seen for persistent rash. Patient had areas of vitiligo on her hands, back and neck. She also has intense rash in her groin. Right hip with moderate amount of scratched areas as well as red raised areas. Patient reports intense itching throughout most of the day. Patient also noted to be frequently rubbing her skin with towels and washing her face. Reports that she has not had a shower in 8 days. She denies any fever or chills, denies any shortness of breath or chest pain, denies any other concerning symptoms. Areas on her face are improving, the area on her right side of her cheek is healed, area on the left side of her cheek is improving. Patient reports that she had a biopsy of her back prior to admission to inpatient level of care. Call placed to Dr. Quinn for biopsy results to guide treatment. Patient tested positive for MRSA, antibiotic changed to doxycycline. Review of Systems Denies any shortness of breath, chest pain, headaches, dysuria, abdominal pain or discomfort, nausea, vomiting or diarrhea. Reports intense itching all over her body Physical Exam Exam: Exam: CONST: Alert and oriented, in NAD. Well nourished. Pleasant and cooperative HEENT: Normocephalic, atraumatic, MMM, Eyes clear, Neck supple RESP: Lungs clear, RRR even and regular HEART:,RRR, S1, S2. No edema GI:Abdomen Soft NT, ND. + BS times four :Deferred SKIN: Warm dry and intact, positive rash to groin, right hip raised rash with scratched areas. Right cheek with healing area, left cheek improving without evidence of infection. Areas of decreased pigmentation on her arms, back, neck and chest. NEURO:CN II-XII Intact bilaterally, Sensation intact. Speech clear PSYCH: Normal affect Vital Signs: Vital Signs: Last Vital Signs Temp 98.4 F 12/15/24 20:00 Pulse 76 12/15/24 20:00 Resp 16 12/15/24 20:00 BP 109/55 L 12/15/24 20:00 Pulse Ox 95 12/15/24 20:00 O2 Del Method Room Air 12/15/24 20:00 BMI result Body Mass Index 25.7 Objective Data Active Medications Acetaminophen (Acetaminophen 325 Mg Tablet) 650 mg PO Q6H PRN PRN Reason: Headache/Pain, Scale 1-10 Al Hydroxide/Mg Hydroxide (Magnesium Hydrox/Alum Hydrox 30 Ml Oral.Susp) 30 ml PO Q6H PRN PRN Reason: Heartburn/Nausea Apixaban (Apixaban 5 Mg Tablet) 5 mg PO BID [facility] Last Admin: 12/16/24 08:45 Dose: 5 mg Documented By: AMINA Ascorbic Acid (Ascorbic Acid 500 Mg Tablet) 500 mg PO DAILY [facility] Last Admin: 12/16/24 08:44 Dose: 500 mg Documented By: AMINA Betamethasone Dipropion Augmented (Betamethasone Dip Aug 0.05% Cr 15 Gm Tube) 1 appl TOPICAL BID [facility]; Protocol Stop: 12/25/24 09:01 Last Admin: 12/15/24 20:43 Dose: 1 appl Documented By: FRIDA Calcium Carbonate/Cholecalciferol (Calcium + Vitamin D 250 Mg Tablet) 500 mg PO DAILY [facility] Last Admin: 12/16/24 08:44 Dose: 500 mg Documented By: AMINA Doxycycline Monohydrate (Doxycycline Monohydrate 100 Mg Capsule) 100 mg PO Q12H [facility] Stop: 12/26/24 08:59 Last Admin: 12/16/24 10:20 Dose: 100 mg Documented By: AMINA Hydroxyzine HCl (Hydroxyzine Hcl 25 Mg Tablet) 25 mg PO Q6H PRN PRN Reason: mild anxiety Last Admin: 12/14/24 10:24 Dose: 25 mg Documented By: CLARA Magnesium Hydroxide (Milk Of Magnesia 30 Ml Oral.Susp) 30 ml PO DAILY PRN PRN Reason: Constipation Metoprolol Succinate (Metoprolol Succinate Er 50 Mg Tab.Er.24h) 50 mg PO DAILY [facility]; Protocol Last Admin: 12/16/24 08:44 Dose: 50 mg Documented By: AMINA Mupirocin (Mupirocin 2 % Oint 22 Gm Tube) 1 appl TOPICAL TID [facility]; Protocol Last Admin: 12/16/24 08:45 Dose: 1 appl Documented By: AMINA Nicotine (Nicotine 21 Mg Patch.Td24) 21 mg TRANSDERMA DAILY PRN PRN Reason: nicotine craving Nicotine Polacrilex (Nicotine Polacrilex 2 Mg Gum) 2 mg BUCCAL Q2H PRN PRN Reason: Nicotine Cravings Olanzapine (Olanzapine 5 Mg Tablet) 5 mg PO BID PRN PRN Reason: agitation Last Admin: 12/14/24 08:11 Dose: 5 mg Documented By: CLARA Prednisone (Prednisone 20 Mg Tablet) 40 mg PO DAILY [facility] Stop: 12/21/24 10:59 Risperidone (Risperidone 0.5 Mg Tablet) 0.5 mg PO BID [facility] Last Admin: 12/16/24 08:45 Dose: 0.5 mg Documented By: AMINA Saliva Substitute (Dry Mouth [place] 60 Ml [place]) 1 spray MUCOUS MEM Q2H PRN PRN Reason: Dry Mouth Last Admin: 12/13/24 08:39 Dose: 1 spray Documented By: LALA Sertraline HCl (Sertraline Hcl 50 Mg Tablet) 50 mg PO DAILY [facility] Last Admin: 12/16/24 08:45 Dose: 50 mg Documented By: AMINA Trazodone HCl (Trazodone Hcl 50 Mg Tablet) 50 mg PO BEDTIME MRX1 PRN PRN Reason: Insomnia Labs 12/11/24 07:18 Assessment and Plan (1) Bullous impetigo: Status: Acute Plan 79-year-old female admitted to [facility] after presenting to [facility] Emergency Department for increased impulsive thoughts and shon. Dementia/psychotic disorder/SILVIA/MDD/PTSD Treatment per psychiatric team AFib/history of CVA with a gait disturbance/history of TIAs Continue on Eliquis, rate controlled with metoprolol Hypertension Controlled on metoprolol Polymyalgia rheumatica Tylenol as needed No acute flare at this time Atopic dermatitis/bullous impetigo/paronychia Antibiotics changed to doxycycline due to positive MRSA screen. Bactroban continues to face, areas improving Warm soaks to finger followed by bacitracin TID Continue with Atarax as needed for itching. Patient continues to itch all over her skin. Rash is extensive on her hips arms legs and groin We will treat her with a prednisone burst Call placed to Dr. Quinn outpatient Dermatology who performed a biopsy on patient's skin, we will attempt to obtain results to guide treatment otherwise patient will need to follow up outpatient Wound nurse following Dry mouth and periodontal disease Artificial saliva q.2 hours p.r.n. History of hypothyroidism Not on medications TSH within normal limits, free T4 within normal limits Thank you for allowing me to participate in the care of this patient. Will follow as needed, please notify medical provider with any changes in condition or concerns. Quality Stroke Does the patient have a stroke diagnosis?: No VTE Prior VTE?: No VTE Risk Level:: Medical - low VTE Device Contraindication: Treatment Not Indicated VTE Drug Contraindication: N/A - Med Ordered
--- NOTE | 2024-12-16 12:14 | HO.WOUND ---
Wound Consult: Follow up 79 yr old female admitted to [facility] [place] on 12/10/24- See progress notes and H&P for detailed history. Wound consult placed for face. Patient agreeable to assessment and photo documentation. Per notes, patient diagnosed and being treated for bullous impetigo with keflex and bactroban, recommending completing treatment. Patient's antibiotic was changed, patient with red raised itchy rash to legs, arms, hands. Seen at bedside with IT APPLICATION ARCHITECT and RN. Patient to be started on systemic steroid, topical steroid already in place. IT APPLICATION ARCHITECT to contact dermatology regarding biopsy results of area on back. Left cheek 12/12/24 12/16/24 left cheek Right cheek 12/12/24 Right cheek 12/16/24 Etiology: bullous impetigo Measurements: left 1cm x 1cm x 0.1cm, right resurfaced Wound Bed: moist red/pink Drainage / Odor: scant serosanguineous no odor Edges: ? open Sharmaine wound: ? No Induration, Fluctuance or Warmth noted Pain: none Goals of Treatment: ? complete systemic and topical treatment for bullous impetigo back Etiology: dry scab - patient reports biopsy site Measurements: 0.5cm x 0.5cm x 0cm Wound Bed: dry scab Drainage / Odor: none Sharmaine wound: ? No Induration, Fluctuance or Warmth noted, mild localized redness - skin with irregular areas of hypopigmentation noted to back and arms Pain: none Goals of Treatment: ? open to air Groin/inner thighs 12/12/24 Etiology: Fungal ? Wound Bed: intact red with satellite lesions Drainage / Odor: none Edges: ? diffuse Sharmaine wound: ? No Induration, Fluctuance or Warmth noted Pain: none Goals of Treatment: ? antifungal per provider order Right leg 12/16/24 Left arm Etiology: Red, raised, itchy rash to arms/legs Wound Bed: red, raised, itchy Drainage / Odor: none Edges: ? diffuse Sharmaine wound: ? No Induration, Fluctuance or Warmth noted Pain: itchy Goals of Treatment: ? IT APPLICATION ARCHITECT to order oral steroids, topical steroids in place per RN Recommendations: Bilateral cheeks: cleanse with saline, apply bactroban per MAR, cover with dry dressing/bandaid Back: scab, routine hygiene and moisturizer, leave open to air Rash to arms/legs: topical steroid cream per MAR Re-consult wound care Nurse for wound deterioration or wound changes.
[2024-12-16] MEDS: Betamethasone Dip Aug 0.05% Cr 15 GM TUBE 1 APPL TOPICAL ×2 (17:40→21:00)
[2024-12-16 20:00] VITALS: BP 123/60; PULSE 100; RESP 16; TEMP 36.4; O2SAT 97
[2024-12-17 08:20] VITALS: BP 109/59; PULSE 77; RESP 16; TEMP 36.4; O2SAT 97
[2024-12-17] MEDS: Betamethasone Dip Aug 0.05% Cr 15 GM TUBE 1 APPL TOPICAL ×2 (08:43→20:57)
[2024-12-17] MEDS: Calcium + Vitamin D 250 MG TABLET 500 MG PO (08:45)
[2024-12-17] MEDS: Metoprolol Succinate ER 50 MG TAB.ER.24H PO (08:46)
--- NOTE | 2024-12-17 09:25 | P.PNPSI_ITS ---
Subjective Subjective Date of Service: 12/17/24 Reason For Visit: Brief psychotic d/o. SILVIA, PTSD Subjective Notes: Conditional Voluntary Interim History: Patient found standing in the hallway socializing with peers. She is pleasantly confused. She denies anxiety or depression. Denies SI/HI/AH/VH. She slept 8 hours per nursing. Medication Compliance: Yes Side effects from medications: No Attending Groups: Intermittent Review of Systems Acute medical concerns: No Mental Status Exam Mental Status Exam Narrative: Appearance: Casually dressed, adequate hygiene Behavior: Calm and cooperative throughout the interview. Talkative. Eye contact is appropriate, and there are no signs of psychomotor agitation or retardation Speech: Hyperverbal Thought process: Circumstantial Thought content: No self-harming thoughts Mood: Euthymic Affect: Full, mood-congruent SI:denies HI:denies VH/AH:none Delusions: None Insight/judgment: Impaired insight and judgment Memory/cog: Alert and oriented Diagnostics Vital Signs (24Hr): Vital Signs - 24 hr 12/16/24 20:00 12/17/24 08:20 Temperature 97.6 F 97.5 F Pulse Rate 100 77 Respiratory Rate 16 16 Blood Pressure 123/60 109/59 L Pulse Oximetry 97 97 Oxygen Delivery Method Room Air Room Air BMI result Body Mass Index 25.7 Labs 12/11/24 07:18 Medications Medications Current Medications Acetaminophen (Acetaminophen 325 Mg Tablet) 650 mg PO Q6H PRN PRN Reason: Headache/Pain, Scale 1-10 Al Hydroxide/Mg Hydroxide (Magnesium Hydrox/Alum Hydrox 30 Ml Oral.Susp) 30 ml PO Q6H PRN PRN Reason: Heartburn/Nausea Apixaban (Apixaban 5 Mg Tablet) 5 mg PO BID [facility] Last Admin: 12/17/24 08:46 Dose: 5 mg Ascorbic Acid (Ascorbic Acid 500 Mg Tablet) 500 mg PO DAILY [facility] Last Admin: 12/17/24 08:46 Dose: 500 mg Betamethasone Dipropion Augmented (Betamethasone Dip Aug 0.05% Cr 15 Gm Tube) 1 appl TOPICAL BID [facility]; Protocol Stop: 12/25/24 09:01 Last Admin: 12/17/24 08:43 Dose: 1 appl Calcium Carbonate/Cholecalciferol (Calcium + Vitamin D 250 Mg Tablet) 500 mg PO DAILY [facility] Last Admin: 12/17/24 08:45 Dose: 500 mg Doxycycline Monohydrate (Doxycycline Monohydrate 100 Mg Capsule) 100 mg PO Q12H [facility] Stop: 12/26/24 08:59 Last Admin: 12/17/24 08:47 Dose: 100 mg Hydroxyzine HCl (Hydroxyzine Hcl 25 Mg Tablet) 25 mg PO Q6H PRN PRN Reason: mild anxiety Last Admin: 12/16/24 21:02 Dose: 25 mg Magnesium Hydroxide (Milk Of Magnesia 30 Ml Oral.Susp) 30 ml PO DAILY PRN PRN Reason: Constipation Metoprolol Succinate (Metoprolol Succinate Er 50 Mg Tab.Er.24h) 50 mg PO DAILY [facility]; Protocol Last Admin: 12/17/24 08:46 Dose: 50 mg Mupirocin (Mupirocin 2 % Oint 22 Gm Tube) 1 appl TOPICAL TID [facility]; Protocol Last Admin: 12/17/24 08:43 Dose: 1 appl Nicotine (Nicotine 21 Mg Patch.Td24) 21 mg TRANSDERMA DAILY PRN PRN Reason: nicotine craving Nicotine Polacrilex (Nicotine Polacrilex 2 Mg Gum) 2 mg BUCCAL Q2H PRN PRN Reason: Nicotine Cravings Olanzapine (Olanzapine 5 Mg Tablet) 5 mg PO BID PRN PRN Reason: agitation Last Admin: 12/14/24 08:11 Dose: 5 mg Prednisone (Prednisone 20 Mg Tablet) 40 mg PO DAILY [facility] Stop: 12/21/24 10:59 Last Admin: 12/17/24 08:46 Dose: 40 mg Risperidone (Risperidone 0.5 Mg Tablet) 0.5 mg PO BID [facility] Last Admin: 12/17/24 08:47 Dose: 0.5 mg Saliva Substitute (Dry Mouth [place] 60 Ml [place]) 1 spray MUCOUS MEM Q2H PRN PRN Reason: Dry Mouth Last Admin: 12/13/24 08:39 Dose: 1 spray Sertraline HCl (Sertraline Hcl 50 Mg Tablet) 50 mg PO DAILY [facility] Last Admin: 12/17/24 08:45 Dose: 50 mg Trazodone HCl (Trazodone Hcl 50 Mg Tablet) 50 mg PO BEDTIME MRX1 PRN PRN Reason: Insomnia Allergies Allergies Allergy/AdvReac Type Severity Reaction Status Date / Time Penicillins (PCN) Allergy Intermediate unkknown Verified 12/10/24 23:04 Sulfa (Sulfonamide Allergy Intermediate Unknown Verified 12/10/24 23:04 Antibiotics) Cephalosporins Allergy Rash Verified 12/16/24 08:56 dust Allergy Intermediate Unknown Uncoded 12/10/24 23:04 indometh Allergy Intermediate muscle Uncoded 12/10/24 23:04 spasm Assessment & Plan Assessment & Plan (1) Bullous impetigo: Status: Acute Code(s): L01.03 - Bullous impetigo (2) Davida: Status: Acute Code(s): F30.9 - Manic episode, unspecified Plan Mrs. Burns is an 79 year-old woman who was brought to [facility] on sect 12a after PCP called for wellness check and reporting concern in terms of anxiety. She also had two medical concerns including paronychia of finger in left hand and bullous impetigo.On the unit, Pt presents with labile mood, no SI/HI. No psychosis or delusions. Collateral information from daughter seems that these symptoms are not new, however, she has had limited psychiatric treatment during her life and used to be more functional. We discussed risks, benefits and alternative treatment options. Will start risperidone for mood stabilization. MEDICAL plan: Dementia/psychotic disorder/SILVIA/MDD/PTSD Treatment per psychiatric team AFib/history of CVA with a gait disturbance/history of TIAs Continue on Eliquis, rate controlled with metoprolol Hypertension Controlled on metoprolol Polymyalgia rheumatica Tylenol as needed No acute flare at this time Atopic dermatitis/bullous impetigo/paronychia Continue with Keflex and Bactroban Warm soaks to finger followed by bacitracin TID Continue with Atarax as needed for itching, this seems to be a source of patient's distress Contact precautions until 24 hours on treatment. Wound nurse consult Dry mouth and periodontal disease Artificial saliva q.2 hours p.r.n. History of hypothyroidism Not on medications TSH within normal limits, free T4 within normal limits PSYCHIATRIC: 12/12 continue risperidone 0.5mg po BID. 12/16 continue tx. signed CV. 12/17: Continue current treatment regimen. Patient educated on: therapeutic strategies Reason for continued inpatient stay Substantial Risk for: rapid decompensation Time Spent With Patient Time: Total time managing care of this patient today ____ minutes.
--- NOTE | 2024-12-17 13:48 | PC.NURSE ---
Pt showered today. After morning shower, scheduled Bactroban cream applied to bilateral cheeks after saline cleanse. Per hospitalist Keysha Malagon, bilateral cheeks should be left open to air. Pt received scheduled Betamethasone cream to groin and thighs as ordered.
[2024-12-17 20:00] VITALS: BP 136/61; PULSE 72; RESP 16; TEMP 36.4; O2SAT 99
[2024-12-18 08:00] VITALS: BP 109/60; PULSE 83; RESP 17; TEMP 36.3; O2SAT 96
[2024-12-18 08:49] VITALS: BP 109/60; PULSE 83
[2024-12-18] MEDS: Metoprolol Succinate ER 50 MG TAB.ER.24H PO (08:49)
[2024-12-18] MEDS: Calcium + Vitamin D 250 MG TABLET 500 MG PO (08:50)
[2024-12-18] MEDS: Betamethasone Dip Aug 0.05% Cr 15 GM TUBE 1 APPL TOPICAL ×2 (08:50→20:52)
--- NOTE | 2024-12-18 09:29 | P.PNPSI_ITS ---
Subjective Subjective Date of Service: 12/18/24 Reason For Visit: Brief psychotic d/o. SILVIA, PTSD Subjective Notes: Conditional Voluntary Medical Problems Affecting Mental Status: No Interim History: Patient found standing in the day room. She notes that she feels ?good. ? However, she is anxious anxiety due to pending eviction of her and her from their residence. She denies depression. She denies SI/HI/AVH. Medication Compliance: Yes Side effects from medications: No Review of Systems Acute medical concerns: No Mental Status Exam Mental Status Exam Narrative: Appearance: Casually dressed, adequate hygiene Behavior: Calm and cooperative throughout the interview. Talkative. Eye contact is appropriate, and there are no signs of psychomotor agitation or retardation Speech: Hyperverbal Thought process: Circumstantial Thought content: No self-harming thoughts Mood: Good Affect: Labile SI:denies HI:denies VH/AH:none Delusions: None Insight/judgment: Impaired insight and judgment Memory/cog: Alert and oriented Diagnostics Vital Signs (24Hr): Vital Signs - 24 hr 12/17/24 20:00 12/18/24 08:49 Temperature 97.5 F Pulse Rate 72 83 Respiratory Rate 16 Blood Pressure 136/61 109/60 Pulse Oximetry 99 Oxygen Delivery Method Room Air BMI result Body Mass Index 25.7 Labs 12/11/24 07:18 Medications Medications Current Medications Acetaminophen (Acetaminophen 325 Mg Tablet) 650 mg PO Q6H PRN PRN Reason: Headache/Pain, Scale 1-10 Last Admin: 12/17/24 20:57 Dose: 650 mg Al Hydroxide/Mg Hydroxide (Magnesium Hydrox/Alum Hydrox 30 Ml Oral.Susp) 30 ml PO Q6H PRN PRN Reason: Heartburn/Nausea Apixaban (Apixaban 5 Mg Tablet) 5 mg PO BID [facility] Last Admin: 12/18/24 08:50 Dose: 5 mg Ascorbic Acid (Ascorbic Acid 500 Mg Tablet) 500 mg PO DAILY [facility] Last Admin: 12/18/24 08:50 Dose: 500 mg Betamethasone Dipropion Augmented (Betamethasone Dip Aug 0.05% Cr 15 Gm Tube) 1 appl TOPICAL BID [facility]; Protocol Stop: 12/25/24 09:01 Last Admin: 12/18/24 08:50 Dose: 1 appl Calcium Carbonate/Cholecalciferol (Calcium + Vitamin D 250 Mg Tablet) 500 mg PO DAILY [facility] Last Admin: 12/18/24 08:50 Dose: 500 mg Doxycycline Monohydrate (Doxycycline Monohydrate 100 Mg Capsule) 100 mg PO Q12H [facility] Stop: 12/26/24 08:59 Last Admin: 12/18/24 08:49 Dose: 100 mg Hydroxyzine HCl (Hydroxyzine Hcl 25 Mg Tablet) 25 mg PO Q6H PRN PRN Reason: mild anxiety Last Admin: 12/16/24 21:02 Dose: 25 mg Magnesium Hydroxide (Milk Of Magnesia 30 Ml Oral.Susp) 30 ml PO DAILY PRN PRN Reason: Constipation Metoprolol Succinate (Metoprolol Succinate Er 50 Mg Tab.Er.24h) 50 mg PO DAILY [facility]; Protocol Last Admin: 12/18/24 08:49 Dose: 50 mg Mupirocin (Mupirocin 2 % Oint 22 Gm Tube) 1 appl TOPICAL TID [facility]; Protocol Last Admin: 12/18/24 08:51 Dose: 1 appl Nicotine (Nicotine 21 Mg Patch.Td24) 21 mg TRANSDERMA DAILY PRN PRN Reason: nicotine craving Nicotine Polacrilex (Nicotine Polacrilex 2 Mg Gum) 2 mg BUCCAL Q2H PRN PRN Reason: Nicotine Cravings Olanzapine (Olanzapine 5 Mg Tablet) 5 mg PO BID PRN PRN Reason: agitation Last Admin: 12/14/24 08:11 Dose: 5 mg Prednisone (Prednisone 20 Mg Tablet) 40 mg PO DAILY [facility] Stop: 12/21/24 10:59 Last Admin: 12/18/24 08:49 Dose: 40 mg Risperidone (Risperidone 0.5 Mg Tablet) 0.5 mg PO BID [facility] Last Admin: 12/18/24 08:49 Dose: 0.5 mg Saliva Substitute (Dry Mouth [place] 60 Ml [place]) 1 spray MUCOUS MEM Q2H PRN PRN Reason: Dry Mouth Last Admin: 12/13/24 08:39 Dose: 1 spray Sertraline HCl (Sertraline Hcl 50 Mg Tablet) 50 mg PO DAILY [facility] Last Admin: 12/18/24 08:50 Dose: 50 mg Trazodone HCl (Trazodone Hcl 50 Mg Tablet) 50 mg PO BEDTIME MRX1 PRN PRN Reason: Insomnia Last Admin: 12/17/24 20:57 Dose: 50 mg Allergies Allergies Allergy/AdvReac Type Severity Reaction Status Date / Time Penicillins (PCN) Allergy Intermediate unkknown Verified 12/10/24 23:04 Sulfa (Sulfonamide Allergy Intermediate Unknown Verified 12/10/24 23:04 Antibiotics) Cephalosporins Allergy Rash Verified 12/16/24 08:56 dust Allergy Intermediate Unknown Uncoded 12/10/24 23:04 indometh Allergy Intermediate muscle Uncoded 12/10/24 23:04 spasm Assessment & Plan Assessment & Plan (1) Bullous impetigo: Status: Acute Code(s): L01.03 - Bullous impetigo (2) Davida: Status: Acute Code(s): F30.9 - Manic episode, unspecified Plan Mrs. Burns is an 79 year-old woman who was brought to [facility] on sect 12a after PCP called for wellness check and reporting concern in terms of anxiety. She also had two medical concerns including paronychia of finger in left hand and bullous impetigo.On the unit, Pt presents with labile mood, no SI/HI. No psychosis or delusions. Collateral information from daughter seems that these symptoms are not new, however, she has had limited psychiatric treatment during her life and used to be more functional. We discussed risks, benefits and alternative treatment options. Will start risperidone for mood stabilization. MEDICAL plan: Dementia/psychotic disorder/SILVIA/MDD/PTSD Treatment per psychiatric team AFib/history of CVA with a gait disturbance/history of TIAs Continue on Eliquis, rate controlled with metoprolol Hypertension Controlled on metoprolol Polymyalgia rheumatica Tylenol as needed No acute flare at this time Atopic dermatitis/bullous impetigo/paronychia Continue with Keflex and Bactroban Warm soaks to finger followed by bacitracin TID Continue with Atarax as needed for itching, this seems to be a source of patient's distress Contact precautions until 24 hours on treatment. Wound nurse consult Dry mouth and periodontal disease Artificial saliva q.2 hours p.r.n. History of hypothyroidism Not on medications TSH within normal limits, free T4 within normal limits PSYCHIATRIC: 12/12 continue risperidone 0.5mg po BID. 12/16 continue tx. signed CV. 12/17: Continue current treatment regimen. 12/18: Continue current management. SW to meet with family next week regarding discharge planning. Patient educated on: therapeutic strategies Reason for continued inpatient stay Substantial Risk for: rapid decompensation Time Spent With Patient Time: Total time managing care of this patient today ____ minutes.
[2024-12-18 10:12] VITALS: BMI 26.3
[2024-12-18 19:43] VITALS: BP 114/55; PULSE 69; RESP 16; TEMP 36.1; O2SAT 100
[2024-12-19 08:00] VITALS: BP 140/66; PULSE 68; RESP 16; TEMP 36.6; O2SAT 96
[2024-12-19] MEDS: Betamethasone Dip Aug 0.05% Cr 15 GM TUBE 1 APPL TOPICAL ×2 (09:37→20:16)
[2024-12-19] MEDS: Calcium + Vitamin D 250 MG TABLET 500 MG PO (09:38)
[2024-12-19] MEDS: Metoprolol Succinate ER 50 MG TAB.ER.24H PO (09:40)
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
[2024-12-19 20:00] VITALS: BP 131/61; PULSE 71; RESP 16; TEMP 36.4; O2SAT 99
[2024-12-20 08:00] VITALS: BP 134/85; PULSE 65; RESP 14
[2024-12-20] MEDS: Calcium + Vitamin D 250 MG TABLET 500 MG PO (08:45)
[2024-12-20] MEDS: Metoprolol Succinate ER 50 MG TAB.ER.24H PO (08:46)
[2024-12-20] MEDS: Betamethasone Dip Aug 0.05% Cr 15 GM TUBE 1 APPL TOPICAL ×2 (09:00→21:31)
[2024-12-20 19:35] VITALS: BP 122/61; PULSE 75; TEMP 36.7; O2SAT 97
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
[2024-12-21 08:00] VITALS: BP 153/66; PULSE 65; RESP 18; TEMP 36.3; O2SAT 97
[2024-12-21] MEDS: Metoprolol Succinate ER 50 MG TAB.ER.24H PO (08:42)
[2024-12-21] MEDS: Calcium + Vitamin D 250 MG TABLET 500 MG PO (08:42)
[2024-12-21] MEDS: Betamethasone Dip Aug 0.05% Cr 15 GM TUBE 1 APPL TOPICAL ×2 (08:43→21:17)
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
[2024-12-21 20:00] VITALS: BP 115/68; PULSE 73; RESP 16; TEMP 36.6; O2SAT 97
[2024-12-22 08:00] VITALS: BP 125/85; PULSE 75; RESP 14; TEMP 36.5; O2SAT 97
[2024-12-22] MEDS: Calcium + Vitamin D 250 MG TABLET 500 MG PO (09:14)
[2024-12-22] MEDS: Metoprolol Succinate ER 50 MG TAB.ER.24H PO (09:14)
[2024-12-22] MEDS: Betamethasone Dip Aug 0.05% Cr 15 GM TUBE 1 APPL TOPICAL ×2 (09:15→20:41)
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
[2024-12-22 20:00] VITALS: BP 110/55; PULSE 70; RESP 18; TEMP 35.9; O2SAT 99
[2024-12-23 08:00] VITALS: BP 135/63; PULSE 62; RESP 18; TEMP 36; O2SAT 98
[2024-12-23] MEDS: Calcium + Vitamin D 250 MG TABLET 500 MG PO (08:20)
[2024-12-23] MEDS: Metoprolol Succinate ER 50 MG TAB.ER.24H PO (08:21)
[2024-12-23] MEDS: Betamethasone Dip Aug 0.05% Cr 15 GM TUBE 1 APPL TOPICAL ×2 (08:21→21:27)
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
[2024-12-23 20:00] VITALS: BP 111/57; PULSE 80; RESP 16; TEMP 36.7; O2SAT 99
[2024-12-24 08:35] VITALS: BP 138/62; PULSE 70; RESP 18; TEMP 36.2; O2SAT 96
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
[2024-12-24] MEDS: Calcium + Vitamin D 250 MG TABLET 500 MG PO (09:32)
[2024-12-24] MEDS: Betamethasone Dip Aug 0.05% Cr 15 GM TUBE 1 APPL TOPICAL ×2 (09:32→21:49)
[2024-12-24] MEDS: Metoprolol Succinate ER 50 MG TAB.ER.24H PO (09:33)
[2024-12-24] MEDS: Artificial Tears 15 ML DROPS 1 DROP EYE-BOTH (13:08)
[2024-12-24 19:45] VITALS: BP 111/54; PULSE 74; RESP 16; TEMP 36.7; O2SAT 99
--- NOTE | 2024-12-25 | ECG_ITS ---
Test Reason : CHF Blood Pressure : */* mmHG Vent. Rate : 89 BPM Atrial Rate : 89 BPM P-R Int : 216 ms QRS Dur : 92 ms QT Int : 366 ms P-R-T Axes : 22 44 8 degrees QTcB Int : 445 ms Sinus rhythm with 1st degree A-V block with Premature atrial complexes Otherwise normal ECG No previous ECGs available Referred By: Keysha Malagon Electronically Signed By: FRANK ROSS MD
[2024-12-25 07:59] VITALS: BP 144/64; PULSE 69; RESP 16; TEMP 36.4; O2SAT 96
[2024-12-25 08:19] LABS: NT Pro B Type Natriuretic Pept 836.4 pg/mL (<300)
--- NOTE | 2024-12-25 08:38 | HO.PM.IMPN ---
Subjective Subjective Date of Service: 12/25/24 Interval History: Patient was seen for increased edema to bilateral lower legs and elevated BNP. Patient with a history of a cardiac murmur, AFib, and mitral valve prolapse. Patient reports that she has been seen by lumber straightened in the past and was told not to come back for two years. Patient reports that she feels well, denies any chest pain, denies any shortness of breath. Patient reports that she has been eating saltier food than usual since she has been on this unit. Has increased edema to bilateral lower legs, nonpitting. No crackles in her lungs. Chest x-ray reveals cardiomegaly, trace right pleural effusion, increased interstitial markings in the 3rd right lung zone. Lungs are otherwise clear. Review of Systems Denies any shortness of breath, chest pain, headaches, dysuria, abdominal pain or discomfort, nausea, vomiting or diarrhea. Denies fever or chills. Physical Exam Exam: Exam: Alert and oriented X3, clam and cooperative. Answers questions. Neuro: CN II-X11 intact, no deficits, visual acuity intact EYES: PERRLA, EOM intact ENT: Hearing intact, MMM Cardiac: S1 S2 RRR, No ectopy Pulmonary: Lungs clear to auscultation, No increased WOB. Abdominal: BS active in all 4 quadrants, no guarding or tenderness MSK: Strength 5/5 upper and lower extremities : Deferred Extremities: 3+pitting edema bilaterally. Active on unit, steady gait. Psych: Mood stable, Quiet and cooperative. Skin: Warm and dry, Intact Vital Signs: Vital Signs: Last Vital Signs Temp 97.5 F 12/25/24 07:59 Pulse 69 12/25/24 07:59 Resp 16 12/25/24 07:59 BP 144/64 H 12/25/24 07:59 Pulse Ox 96 12/25/24 07:59 O2 Del Method Room Air 12/24/24 19:45 BMI result Body Mass Index 26.3 Objective Data Active Medications Acetaminophen (Acetaminophen 325 Mg Tablet) 650 mg PO Q6H PRN PRN Reason: Headache/Pain, Scale 1-10 Last Admin: 12/18/24 20:48 Dose: 650 mg Documented By: ARMANDO Al Hydroxide/Mg Hydroxide (Magnesium Hydrox/Alum Hydrox 30 Ml Oral.Susp) 30 ml PO Q6H PRN PRN Reason: Heartburn/Nausea Apixaban (Apixaban 5 Mg Tablet) 5 mg PO BID [facility] Last Admin: 12/24/24 20:22 Dose: 5 mg Documented By: CHEYENNE Artificial Tears (Artificial Tears 15 Ml Drops) 1 drop EYE-BOTH Q4H PRN PRN Reason: Dry Eyes Last Admin: 12/24/24 13:08 Dose: 1 drop Documented By: LALA Ascorbic Acid (Ascorbic Acid 500 Mg Tablet) 500 mg PO DAILY [facility] Last Admin: 12/24/24 09:34 Dose: 500 mg Documented By: LALA Betamethasone Dipropion Augmented (Betamethasone Dip Aug 0.05% Cr 15 Gm Tube) 1 appl TOPICAL BID [facility]; Protocol Stop: 12/25/24 09:01 Last Admin: 12/24/24 21:49 Dose: 1 appl Documented By: CHEYENNE Calcium Carbonate/Cholecalciferol (Calcium + Vitamin D 250 Mg Tablet) 500 mg PO DAILY [facility] Last Admin: 12/24/24 09:32 Dose: 500 mg Documented By: LALA Doxycycline Monohydrate (Doxycycline Monohydrate 100 Mg Capsule) 100 mg PO Q12H [facility] Stop: 12/26/24 08:59 Last Admin: 12/24/24 20:21 Dose: 100 mg Documented By: CHEYENNE Hydroxyzine HCl (Hydroxyzine Hcl 25 Mg Tablet) 25 mg PO Q6H PRN PRN Reason: mild anxiety/itchy Last Admin: 12/16/24 21:02 Dose: 25 mg Documented By: FADI Magnesium Hydroxide (Milk Of Magnesia 30 Ml Oral.Susp) 30 ml PO DAILY PRN PRN Reason: Constipation Metoprolol Succinate (Metoprolol Succinate Er 50 Mg Tab.Er.24h) 50 mg PO DAILY [facility]; Protocol Last Admin: 12/24/24 09:33 Dose: 50 mg Documented By: LALA Mupirocin (Mupirocin 2 % Oint 22 Gm Tube) 1 appl TOPICAL TID [facility]; Protocol Last Admin: 12/24/24 21:46 Dose: 1 appl Documented By: CHEYENNE Nicotine (Nicotine 21 Mg Patch.Td24) 21 mg TRANSDERMA DAILY PRN PRN Reason: nicotine craving Nicotine Polacrilex (Nicotine Polacrilex 2 Mg Gum) 2 mg BUCCAL Q2H PRN PRN Reason: Nicotine Cravings Olanzapine (Olanzapine 5 Mg Tablet) 5 mg PO BID PRN PRN Reason: agitation Last Admin: 12/14/24 08:11 Dose: 5 mg Documented By: CLARA Risperidone (Risperidone 1 Mg Tablet) 1 mg PO DAILY [facility] Risperidone (Risperidone 2 Mg Tablet) 2 mg PO BEDTIME [facility] Last Admin: 12/24/24 20:22 Dose: 2 mg Documented By: CHEYENNE Saliva Substitute (Dry Mouth [place] 60 Ml [place]) 1 spray MUCOUS MEM Q2H PRN PRN Reason: Dry Mouth Last Admin: 12/13/24 08:39 Dose: 1 spray Documented By: LALA Sertraline HCl (Sertraline Hcl 100 Mg Tablet) 100 mg PO DAILY [facility] Last Admin: 12/24/24 09:34 Dose: 100 mg Documented By: LALA Trazodone HCl (Trazodone Hcl 50 Mg Tablet) 50 mg PO BEDTIME MRX1 PRN PRN Reason: Insomnia Last Admin: 12/20/24 21:29 Dose: 50 mg Documented By: EMI Labs 12/25/24 11:17 12/25/24 11:17 Labs: Laboratory Results - last 24 hr 12/25/24 07:08 NT-Pro-B Natriuret Pep 836.4 H Assessment and Plan (1) Bullous impetigo: Status: Acute (2) Congestive heart failure: Status: Acute Plan 79-year-old female admitted to [facility] after presenting to [facility] Department for increased impulsive thoughts and shon. Dementia/psychotic disorder/SILVIA/MDD/PTSD Treatment per psychiatric team AFib/history of CVA with a gait disturbance/history of TIAs/CHF Continue on Eliquis, rate controlled with metoprolol Patient with increased edema, BNP 836.4 Chest x-ray reveals cardiomegaly, trace right pleural effusion, increased interstitial markings in the 3rd right lung zone Lasix 40 mg x 1 given today. Continue Lasix 20 mgs daily. Intake and output, daily weights Echocardiogram pending-EKG with normal sinus rhythm with first-degree AV block with PACs Previous EKG from outside hospital in patient's chart Cardiology consulted Hypertension Controlled on metoprolol Polymyalgia rheumatica Tylenol as needed No acute flare at this time Atopic dermatitis/bullous impetigo/paronychia Areas improving Continue with Atarax as needed for itching. Completed prednisone burst Call placed to Dr. Quinn outpatient Dermatology who performed a biopsy on patient's skin, no return call. Wound nurse following Dry mouth and periodontal disease Artificial saliva q.2 hours p.r.n. History of hypothyroidism Not on medications TSH within normal limits Thank you for allowing me to participate in the care of this patient. Will follow as needed, please notify medical provider with any changes in condition or concerns. Quality Stroke Does the patient have a stroke diagnosis?: No VTE Prior VTE?: No VTE Risk Level:: Medical - low VTE Device Contraindication: Treatment Not Indicated VTE Drug Contraindication: N/A - Med Ordered
[2024-12-25] MEDS: Metoprolol Succinate ER 50 MG TAB.ER.24H PO (08:44)
[2024-12-25] MEDS: Calcium + Vitamin D 250 MG TABLET 500 MG PO (08:44)
[2024-12-25 11:34] LABS: MANUAL DIFF FLAG NO
[2024-12-25 11:43] LABS: Hematocrit 38.5 % (37.0-47.0); Hemoglobin 12.5 g/dl (12.0-16.0); Imm Gran Abs Auto 0.05 X10*3/uL (0.00-0.03); Imm Gran Pct Auto 0.4 % (0.0-0.4); Lymphocytes Absolute Auto 1.2 X10*3/uL (1.2-4.9); Mean Corpuscular HGB Conc 32.5 g/dl (31.0-35.0); Mean Corpuscular Hemoglobin 30.0 pg (27.0-33.0); Mean Corpuscular Volume 92.3 fL (80.0-98.0); NRBC Abs Auto 0.000 X10*3/uL (0.0-0.012); NRBC Pct Auto 0.0 /100WBC (0.0-0.2); Platelet Count 216 X10*3/uL (160-400); Red Blood Count 4.17 X10*6/uL (4.20-5.50); White Blood Count 11.3 X10*3/uL (4.8-10.8)
[2024-12-25 12:01] LABS: Alanine Aminotransferase 29 U/L (0-31); Albumin Level 4.0 g/dL (3.5-5.0); Alkaline Phosphatase 69 U/L (39-117); Anion Gap 10 (12-20); Aspartate Amino Transferase 27 U/L (5-31); Blood Urea Nitrogen 19 mg/dL (9-16); Calcium 9.6 mg/dL (8.4-10.2); Carbon Dioxide 32 mmol/L (22-29); Chloride 100 mmol/L (96-108); Creatinine Clr Calc Pharmacy 69.8; Estimated Glomerular Filt Rate > 60; Potassium 4.1 mmol/L (3.3-5.1); Sodium 138 mmol/L (135-145); Total Protein 6.8 g/dL (6.5-8.0)
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
[2024-12-25] MEDS: Betamethasone Dip Aug 0.05% Cr 15 GM TUBE 1 APPL TOPICAL (17:30)
[2024-12-25 18:10] VITALS: BMI 26.5
[2024-12-25 20:00] VITALS: BP 115/58; PULSE 70; RESP 16; TEMP 36.6; O2SAT 98
--- NOTE | 2024-12-26 07:00 | CA_ITS ---
Transthoracic Echocardiogram Patient (Last, First, Middle): Isaiah Burns, Gender: F Date of : 1945 Age: 79 Procedure Date: 12/26/2024 Procedure Type: Transthoracic Echocardiogram Location: S3W Height: 167.64 cm Weight: 73.94 kg BSA: 1.83 m2 Heart Rate: 71 bpm BP: 144 / 64 mmHg Manufacturing Leader: TO Referring MD: Keysha Malagon DNP Nuclear Radiologist: John Gan MD Symptoms: New onset CHF Study Quality: Adequate ECG Rhythm: Sinus Conclusions: - 1. Normal LV ejection fraction 65-70% with pseudonormal filling pattern 2. Moderate biatrial enlargement 3. Calcific aortic valve and mitral valve changes noted with normal cardiac valvular Dopplers 4. Mildly elevated right ventricular systolic pressure with significantly elevated right atrial pressures 5. Trivial pericardial effusion Findings Left Ventricle Normal left ventricular size, thickness, and systolic function. The visually estimated ejection fraction is between 65-70%. Spectral Doppler is indicative of a pseudonormal filling pattern. Right Ventricle Normal right ventricular cavity size and systolic function. Atria The left atrium is moderately dilated. There is no evidence of interatrial shunt. The right atrium is moderately dilated. Aortic Valve There is mild calcification of the aortic valve. There is no aortic valve stenosis. There is mild aortic valve regurgitation. Mitral Valve There is mild anterior and posterior mitral leaflet thickening. There is mild mitral annular calcification. There is trace mitral valve regurgitation. There is no mitral valve stenosis. Pulmonic Valve The pulmonic valve is likely normal. There is trace pulmonic valve regurgitation. Tricuspid Valve Normal tricuspid valve structure. There is mild tricuspid valve regurgitation. Significantly elevated right atrial pressure. Mild pulmonary hypertension is present. Great Vessels All visible segments of the aorta are normal in size. The pulmonary artery was not well visualized. There is no dilatation of the ascending aorta measuring 3.10 cm. Venous The inferior vena cava is moderately dilated and does not collapse with inspiration. Pericardium/Pleural There is a trivial pericardial effusion. Prior Study Comparison No prior study available for comparison. Measurements 2D Linear Measurements IVSd: 0.94 0.6-0.9/0.6-1.0 cm LVIDd: 4.18 3.9-5.3/4.2-5.9 cm LVIDd Index: 2.28 2.4-3.2/2.2-3.1 cm/m2 LVIDs: 2.39 2.0-3.6 cm LVPWd: 0.94 0.7-1.1 cm LA Diam: 3.90 2.7-3.8/3.0-4.0 cm LAIDs Index: 2.13 1.5-2.3 cm/m2 LV Mass: 155.26 67-162/88-224 g LV Mass Index: 84.84 43-95/49-115 g/m2 LVOT Diam: 2.00 3.0+(-)1.3 cm 2D Systolic Function EF 4C: 66.30 >55% EF 2C: 66.50 >55% EF BiP: 66.50 >55% Mitral Valve MV Pk E: 1.05 MV PK A: 0.51 MV Decel Time: 167.00 E/A: 2.00 E'Lateral: 8.16 E'Medial: 7.94 E/E' Med: 13.20 E/E' Lat: 12.90 PHT: 49.00 MVA PHT: 4.49 Decel Pratt: 6.26 Aortic Valve AoV Pk Corbin: 1.57 AoV Mn Corbin: 1.05 AoV VTI: 0.35 AoV Pk Grad: 10.00 Aov Mn Grad: 5.00 KIANA Cont.VTI: 2.13 LVOT LVOT Pk Corbin: 1.10 LVOT Mn Corbin: 0.72 LVOT VTI: 0.24 LVOT Pk Grad: 5.00 LVOT Mn Grad: 2.00 LVOT Diam: 2.00 LVOT Area: 3.14 Diastolic Function MV Pk E: 1.05 MV Pk A: 0.51 E/A: 2.00 E'Medial: 7.94 E/E' Med: 13.20 E' Laterial: 8.16 E/E' Lat: 12.90 Right Ventricle TAPSE (mm): 26.00 TVS' Corbin: 12.70 Tricuspid Valve TR Pk Corbin: 2.73 TR Pk Grad: 30.00 RA Press: 15.00 RVSP: 45.00 Great Vessels Aorta Sinus of Valsalva: 3.01 2.0-3.5 cm Ao Asc: 3.10 2.1-3.4 cm Updated in Other Vendor System with Status of Final John Gan MD electronically signed on 12/26/2024 3:30:33 PM with status of Final
[2024-12-26 08:00] VITALS: BP 118/54; PULSE 76; RESP 15; TEMP 36.6; O2SAT 99
[2024-12-26 08:07] LABS: Anion Gap 9 (12-20); Blood Urea Nitrogen 18 mg/dL (9-16); Calcium 8.6 mg/dL (8.4-10.2); Carbon Dioxide 28 mmol/L (22-29); Chloride 105 mmol/L (96-108); Creatinine Clr Calc Pharmacy 74.6; Estimated Glomerular Filt Rate > 60; Potassium 4.3 mmol/L (3.3-5.1); Sodium 138 mmol/L (135-145)
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
[2024-12-26] MEDS: Metoprolol Succinate ER 50 MG TAB.ER.24H PO (08:44)
[2024-12-26] MEDS: Calcium + Vitamin D 250 MG TABLET 500 MG PO (08:44)
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
[2024-12-26 20:00] VITALS: BP 107/50; PULSE 70; RESP 17; TEMP 36.6; O2SAT 99
[2024-12-27 06:00] VITALS: BMI 25.2
[2024-12-27 07:08] VITALS: BMI 25.7
[2024-12-27 08:20] VITALS: BP 121/55; PULSE 71; RESP 16; TEMP 36.2; O2SAT 98
[2024-12-27] MEDS: Calcium + Vitamin D 250 MG TABLET 500 MG PO (09:06)
[2024-12-27] MEDS: Metoprolol Succinate ER 50 MG TAB.ER.24H PO (09:07)
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
[2024-12-27 20:00] VITALS: BP 113/57; PULSE 80; RESP 16; TEMP 36.6; O2SAT 97
[2024-12-28 06:00] VITALS: BMI 25.7
[2024-12-28 08:00] VITALS: BP 111/58; PULSE 82; RESP 16; TEMP 36.2; O2SAT 99
[2024-12-28] MEDS: Metoprolol Succinate ER 50 MG TAB.ER.24H PO (08:32)
[2024-12-28] MEDS: Calcium + Vitamin D 250 MG TABLET 500 MG PO (08:33)
[2024-12-28] MEDS: Artificial Tears 15 ML DROPS 1 DROP EYE-BOTH (08:37)
[2024-12-28] MEDS: Dry Mouth Spray 60 ML SPRAY 1 SPRAY MUCOUS MEM (08:38)
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
[2024-12-28 20:00] VITALS: BP 114/56; PULSE 88; RESP 18; TEMP 36.2; O2SAT 98
[2024-12-29 06:00] VITALS: BMI 24.9
[2024-12-29 08:23] VITALS: BP 111/53; PULSE 78; RESP 15; TEMP 36.9; O2SAT 100
[2024-12-29] MEDS: Metoprolol Succinate ER 50 MG TAB.ER.24H PO (08:27)
[2024-12-29] MEDS: Calcium + Vitamin D 250 MG TABLET 500 MG PO (08:28)
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
[2024-12-29 15:14] LABS: Anion Gap 8 (12-20); Blood Urea Nitrogen 25 mg/dL (9-16); Calcium 8.4 mg/dL (8.4-10.2); Carbon Dioxide 33 mmol/L (22-29); Chloride 102 mmol/L (96-108); Creatinine Clr Calc Pharmacy 61.6; Estimated Glomerular Filt Rate > 60; Potassium 4.7 mmol/L (3.3-5.1); Sodium 138 mmol/L (135-145)
[2024-12-29 20:00] VITALS: BP 115/58; PULSE 100; RESP 16; TEMP 35.9; O2SAT 98
[2024-12-30 06:00] VITALS: BMI 25.9
[2024-12-30 08:00] VITALS: BP 120/66; PULSE 79; RESP 14; TEMP 36.3; O2SAT 93
[2024-12-30] MEDS: Calcium + Vitamin D 250 MG TABLET 500 MG PO (08:40)
[2024-12-30] MEDS: Metoprolol Succinate ER 50 MG TAB.ER.24H PO (08:40)
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
[2024-12-30 19:44] VITALS: BP 109/76; PULSE 99; RESP 16; TEMP 35.6; O2SAT 99
[2024-12-31 06:00] VITALS: BMI 25.7
[2024-12-31 08:00] VITALS: BP 80/57; BP 84/51
[2024-12-31] MEDS: Metoprolol Succinate ER 50 MG TAB.ER.24H PO (08:53)
[2024-12-31] MEDS: Calcium + Vitamin D 250 MG TABLET 500 MG PO (08:53)
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
--- NOTE | 2024-12-31 09:51 | PC.NURSE ---
Lsix held this morning due to low Bp. Practioner notified and lasix was discontinued
== END 2024-12-31 13:55 | disposition home or self-care (01) | DRG 885 ==
PROVIDERS: Nurse Practitioner Family; Nurse Practitioner Psychiatric/Mental Health; Physician Assistant; Admitting Provider Psychiatry & Neurology Psychiatry; Visit Provider Psychiatry & Neurology Psychiatry
DX: F30.9 Manic episode, unspecified (principal); L01.03 Bullous impetigo; I48.0 Paroxysmal atrial fibrillation; L80 Vitiligo; I10 Essential (primary) hypertension; K05.6 Periodontal disease, unspecified; I87.2 Venous insufficiency (chronic) (peripheral); F03.90 Unspecified dementia, unspecified severity, without behavioral disturbance, psychotic disturbance, mood disturbance, and anxiety; F43.10 Post-traumatic stress disorder, unspecified; M35.3 Polymyalgia rheumatica; Z86.73 Personal history of transient ischemic attack (TIA), and cerebral infarction without residual deficits; Z86.39 Personal history of other endocrine, nutritional and metabolic disease; Z79.01 Long term (current) use of anticoagulants; Z79.899 Other long term (current) drug therapy
CPT/HCPCS: 36415; 71046; 80048; 80053; 80061; 83036; 83880; 84439; 84443; 85025; 87640; 87641; 93005; 93306; Q9957

== ENCOUNTER 2024-12-10 23:46 | Outpatient (BNV) | payer MEDICARE, SELFPAY | END 2024-12-25 09:38 | PROVIDERS: Admitting Provider Psychiatry & Neurology Psychiatry; Visit Provider Internal Medicine Cardiovascular Disease | DX: I44.0 Atrioventricular block, first degree (principal); I49.1 Atrial premature depolarization | CPT/HCPCS: 93010 ==

== ENCOUNTER 2024-12-10 23:46 | Outpatient (BNV) | payer MEDICARE, SELFPAY | END 2024-12-26 07:00 | PROVIDERS: Admitting Provider Psychiatry & Neurology Psychiatry; Visit Provider Internal Medicine Cardiovascular Disease | DX: I51.7 Cardiomegaly (principal); I35.8 Other nonrheumatic aortic valve disorders; I34.81 Nonrheumatic mitral (valve) annulus calcification; I31.39 Other pericardial effusion (noninflammatory) | CPT/HCPCS: 93306 ==

== ENCOUNTER 2024-12-10 23:46 | Outpatient (BNV) | payer MEDICARE, SELFPAY | END 2024-12-25 13:39 | PROVIDERS: Admitting Provider Psychiatry & Neurology Psychiatry; Visit Provider Radiology Diagnostic Radiology | DX: I51.7 Cardiomegaly (principal) | CPT/HCPCS: 71046 ==

== ENCOUNTER → 2024-12-10 23:46 | Outpatient (BNV) | payer MEDICARE, SELFPAY | PROVIDERS: Admitting Provider Psychiatry & Neurology Psychiatry; Visit Provider Social Worker | DX: F30.9 Manic episode, unspecified (principal); L01.03 Bullous impetigo | CPT/HCPCS: 90792; 99231; 99232 ==

== ENCOUNTER → 2024-12-10 23:46 | Outpatient (BNV) | payer MEDICARE, SELFPAY | PROVIDERS: Admitting Provider Psychiatry & Neurology Psychiatry; Visit Provider Nurse Practitioner Family | DX: L01.03 Bullous impetigo (principal) | CPT/HCPCS: 99221; 99222; 99231 ==

== ENCOUNTER → 2024-12-10 23:46 | Outpatient (BNV) | payer MEDICARE, SELFPAY | PROVIDERS: Admitting Provider Psychiatry & Neurology Psychiatry; Visit Provider Internal Medicine Cardiovascular Disease | DX: I48.0 Paroxysmal atrial fibrillation (principal); R60.0 Localized edema | CPT/HCPCS: 99222 ==